=== PATIENT | female | born 1985 | race Caucasian/White ===

== ENCOUNTER 2020-05-30 16:06 | Emergency (ER) | payer SELFPAY ==
[2020-05-30] MEDS ORDERED: ACETAMINOPHEN 325 MG TABLET ONE (16:45)
[2020-05-30] MEDS ORDERED: NA CHLORIDE 0.9% 1,000 ML ONE (16:45)
[2020-05-30 16:48] LABS: Absolute Lymphocytes (CBC) 1.6 K/uL (0.7-4.9); Basophils % 0.7 % (0-1.3); Hematocrit 40.3 % (36.0-45.0); Lymphocytes % 21.7 % (15.3-44.8); MPV 8.4 fL (7.6-11.3); RBC Red Blood Cell Count 4.25 M/uL (3.86-4.86)
[2020-05-30 17:09] LABS: Protime INR 0.92
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
[2020-05-30 17:23] LABS: ALT/SGPT 22 U/L (12-78); AST/SGOT 21 U/L (15-37); Albumin 3.8 g/dL (3.4-5.0); Alkaline Phosphatase 61 U/L (45-117); BUN Blood Urea Nitrogen 9 mg/dL (7-18); Bicarbonate 24 mmol/L (21-32); Bilirubin Direct 0.2 mg/dL (0-0.2); Bilirubin Total 0.8 mg/dL (0.2-1.0); Glucose Level 97 mg/dL (74-106); Potassium 3.8 mmol/L (3.5-5.1); Protein, Total 6.9 g/dL (6.4-8.2); Sodium Level 140 mmol/L (136-145)
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
[2020-05-30] MEDS ORDERED: levETIRAcetam 500 MG TAB ONE (19:46)
[2020-05-30 20:04] LABS: Barbiturates NEGATIVE (NEGATIVE); Benzodiazepines POSITIVE (NEGATIVE); Cocaine POSITIVE (NEGATIVE); METHAMPHETAM NEGATIVE (NEGATIVE); Methadone NEGATIVE (NEGATIVE); Opiates NEGATIVE (NEGATIVE); Phencyclidine NEGATIVE (NEGATIVE); THC Cannibis NEGATIVE (NEGATIVE)
[2020-05-30 20:31] LABS: Urine Blood TRACE (NEG); Urine Glucose NEGATIVE (NEG); Urine Protein NEGATIVE (NEG); Urine pH 8.5 (5.0-7.0)
--- NOTE | 2020-05-31 07:35 | EKG ---
Test Date: 2020-05-30 Test Time: 17:26:27 Cue Worker: ALLYSSA MEASUREMENT RESULTS: Intervals: Rate: 75 OH: 138 QRSD: 88 QT: 384 QTc: 428 [place]: P: 65 OH: 138 QRS: -20 T: 40 INTERPRETIVE STATEMENTS: Normal sinus rhythm Possible Left atrial enlargement Borderline ECG No previous ECG available for comparison Electronically Signed On 05-31-20 07:34:18 LABOR GANG SUPERVISOR by Satnam Moore
[2020-06-01 15:14] VITALS: BP 113/68; O2SAT 100
[2020-06-01 15:21] VITALS: TEMP 98.6
== END 2020-05-30 19:54 | disposition home or self-care (01) ==
LOC: ER 16:06
DX: G40.909 Epilepsy, unspecified, not intractable, without status epilepticus (principal)
CPT/HCPCS: 36415; 70450; 72125; 80048; 80076; 80307; 80320; 80329; 81003; 81025; 85025; 85610; 85730; 93005; 99284; J7030

== ENCOUNTER 2020-08-05 17:42 | Emergency (ER) | payer SELFPAY ==
--- OUTSIDE RECORDS SUMMARY | 2020-08-05 17:45 | XMS REPORT | Continuity of Care Document ---
:[address] [facility] [place], [place] t Address [address] [place] [address] Care Team Providers Name Role Phone Unavailable Unavailable Unavailable Payers Payer Name Policy Type Policy Number Effective Date Expiration Date S ource Problems This patient has no known problems. Allergies, Adverse Reactions, Alerts Allergy Allergy Status Severity Reaction(s) Onset Inactive Treating Comm ents Source Name Type Date Date Clinician CODEINE DA Active U 2009-0 [facility] [place] [facility] No Known DA Active U 2009-0 [facility] Contrast 3-16 [place] [facility] No Known DA Active U 2009-0 [facility] Food 3-16 [place] [facility]: d [facility] No Known DA Active U 2009-0 [facility] Other 3-16 [place] [facility] Medications This patient has no known medications. Procedures This patient has no known procedures. Results Test Description Test Time Test Comments Results Result Comments Source BEDSIDE CREATININE 2019-03-12 13:37:00 Test Item Value Reference Range Interpretation Comme nts BEDSIDE CREATININE (test code = CREATBED) 0.6 mg/dL 0.52-1.04 [place] - PELVIC [id number] 02:02:00 FAX: Diana Wick [phone] [place]: St: REG Name: MAGGY DUNHAM [facility] Ida : 1985 Age/S: 33/F [address] Unit#: [id number] Loc: [place] [address] Phys: Diana Diego NP Acct: [id number] Dis Date: Status: REG ER PHONE #: [phone] Exam Date: 01/17/2019 0156 FAX #: [phone] Reason: LOWER ABD PAIN EXAMS: CPT CODE: [id number] US PELVIC COMPLETE 25794 Exam: Pelvic sonogram. Location: H 12 History: See reason on US PELVIC NON OB COMPLETE Technique: A real-time transabdominal pelvic sonogram was performed. A transvaginal exam was performed to better evaluate the pelvic anatomy. Grayscale, color flow and spectral analysis of the ovarian vessels was performed. Findings: The uterus is normal in size, shape and echotexture and measures 8.5 x 4.0 x 5.1 cm. The endometrial canal is empty. The stripe measures 1.1 cm. The ovaries are well visualized. The right ovary measures 2.8 x 2.4 x 2.3 cm with a 1.3 cm cyst noted. The left ovary measures 2.8 x 1.9 x 1.8 cm. There is good blood flow to both ovaries. No adnexal mass is seen. A small amount of free fluid is found the right adnexa. Impression: 1. Right ovarian cyst and surrounding fluid. 2. Otherwise unremarkable exam. at 0202 Reported and signed by: Gustavo New CC: Diana Diego NP Techn ologist: Stephani Baron RDOK RVT Trnscrd Date/Time/By: 01/17/2019 (0202) : By: IshaFC PAGE 1 Signed Report FAX: Diana Wick [phone] [place]: St: REG Name: MAGGY DUNHAM [facility] : 1985 Age/S: 33/F [address] Unit #: [id number] Loc: [place] [address] Phys: Diana Diego [employer] REPRESENTATIVE Acct: [id number] Dis Date: Status: RE G ER PHONE #: [phone] Exam Date: 01/17/2019155 FAX #: [phone] Reason: LOWER ABD PAIN EXAMS: CPT CODE: [id number] US PELVIC COMPLETE 92388 <Continued> Orig Print D/T: S: 01/17/2019 (0206) PAGE 2 Signed Report- US TRANSVAGINAL NON [id number] 02:02:00 FAX: Diana Wick [phone] [place]: St: REG Name: MAGGY DUNHAM [facility] : 1985 Age/S: 33/F [address] Unit#: [id number] Loc: [place] [address] Phys: Diana Diego [employer] REPRESENTATIVE Acct: [id number] Dis Date: Status: REG ER PHONE #: [phone] Exam Date: 01/17/2019155 FAX #: [phone] Reason: See reason on US PELVIC NON OB COMPLETE EXAMS: CPT CODE: [id number] [place] [address] Exam: Pelvic sonogram. Location: H 12 History: See reason on US PELVIC NON OB COMPLETE Technique: A real-time transabdominal pelvic sonogram was performed. A transvaginal exam was performed to better evaluate the pelvic anatomy. Grayscale, color flow and spectral analysis of the ovarian vessels was performed. Findings: The uterus is normal in size, shape and echotexture and measures 8.5 x 4.0 x 5.1 cm. The endometrial canal is empty. The stripe measures 1.1 cm. The ovaries are well visualized. The right ovary measures 2.8 x 2.4 x 2.3 cm with a 1.3 cm cyst noted. The left ovary measures 2.8 x 1.9 x 1.8 cm. There is good blood flow to both ovaries. No adnexal mass is seen. A small amount of free fluid is found the right adnexa. Impression: 1. Right ovarian cyst and surrounding fluid. 2. Otherwise unremarkable exam. at 0202 Reported and signed by: Gustavo New CC: Diana Diego NP Techn ologist: Stephani Baron [facility] RVT; S#:[id number] Trnscrd Date/Time/By: 01/17/2019 (0202) : By: Isha PAGE 1 Signed Report FAX: Diana Wick [phone] [place]: St: REG Name: MAGGY DUNHAM [facility] : 1985 Age/S: 33/F [address] Unit #: [id number] Loc: [place] [address] Phys: Diana Diego NP Acct: [id number] Dis Date: Status: RE Janette ER PHONE #: [phone] Exam Date: 01/17/2019 0156 FAX #: [phone] Reason: See reason on US PELVIC NON OB COMPLETE EXAMS: CPT CODE: [id number] [place] [address] <Continued> Orig Print D/T: S: 01/17/2019 (0205) PAGE 2 Signed Report- DUP AB/PEL/SC/[id number] 02:02:00 FAX: Diana Wick [phone] [place]: St: REG Name: MAGGY DUNHAM [facility] : 1985 Age/S: 33/F [address] Unit#: [id number] Loc: [place] [address] Phys: Diana Diego [employer] REPRESENTATIVE Acct: [id number] Dis Date: Status: [facility] ER PHONE #: [phone] Exam Date: 01/17/2019155 FAX #: [phone] Reason: See reason on US PELVIC NON OB COMPLETE EXAMS: CPT CODE: [id number] DUP AB/PEL/SC/LTD 39362 Exam: Pelvic sonogram. Location: H 12 History: See reason on US PELVIC NON OB COMPLETE Technique: A real-time transabdominal pelvic sonogram was performed. A transvaginal exam was performed to better evaluate the pelvic anatomy. Grayscale, color flow and spectral analysis of the ovarian vessels was performed. Findings: The uterus is normal in size, shape and echotexture and measures 8.5 x 4.0 x 5.1 cm. The endometrial canal is empty. The stripe measures 1.1 cm. The ovaries are well visualized. The right ovary measures 2.8 x 2.4 x 2.3 cm with a 1.3 cm cyst noted. The left ovary measures 2.8 x 1.9 x 1.8 cm. There is good blood flow to both ovaries. No adnexal mass is seen. A small amount of free fluid is found the right adnexa. Impression: 1. Right ovarian cyst and surrounding fluid. 2. Otherwise unremarkable exam. at 0202 Reported and signed by: Gustavo New CC: Diana Diego NP Techn ologist: Stephani Baron [facility] RVT Trnscrd Date/Time/By: 01/17/2019 (020) : By: Isha PAGE 1 Signed Report FAX: Diana Wick [phone] [place]: St: REG Name: CHARLAMAGGY HUGO [facility] : 1985 Age/S: 33/F [address] Unit #: [id number] Loc: [place] [address] Phys: Diana Diego NP Acct: [id number] Dis Date: Status: [facility] ER PHONE #: [phone] Exam Date: 01/17/2019 0156 FAX #: [phone] Reason: See reason on US PELVIC NON OB COMPLETE EXAMS: CPT CODE: [id number] DUP AB/PEL/SC/LTD 73214 <Continued> Orig Print D/T: S: 01/17/2019 (1202) PAGE 2 Signed Report BASIC METABOLIC [id number] 00:29:00 Test Item Value Reference Range Interpretation Comments SODIUM (test code = 139 mmol/L 137-145 N NA) POTASSIUM (test code 3.7 mmol/L 3.4-5.0 N = K) CHLORIDE (test code = 100 mmol/L 98-107 N CL) CARBON DIOXIDE (test 25 mmol/L 22-30 N code = CO2) GLUCOSE (test code = 118 mg/dL 74-106 H GLU) BLOOD UREA NITROGEN 9 mg/dL 7-17 N (test code = BUN) GLOMERULAR FILTRATION 121 >60 The es timated RATE (test code = glomerular filtration GFR) rate is compute d usingpatient ra ce, age (>18), sex, and serum creatinine. If anyof the needed data elements are mi ssing the Laboratory cannot compute an francisco mation of the glomerul ar filtration rate . CREATININE (test code 0.6 mg/dL 0.5-1.0 N = CREAT) CALCIUM (test code = 9.7 mg/dL 8.4-10.2 N CA) LIVER FUNCTION [id number] 00:29:00 Test Item Value Reference Range Interpretation Comments TOTAL PROTEIN (test 8.0 g/dL 6.3-8.2 N code = PROT) ALBUMIN (test code = 4.8 g/dL 3.5-5.0 N ALB) BILIRUBIN TOTAL (test 0.3 mg/dL 0.2-1.3 N code = BILT) BILIRUBIN CONJUGATED 0 mg/dL 0-0.3 N ~~~~~~~ ~~~~~~~~~~~~~~ (test code = BILCON) ~~~~~~~ ~~~~~~~~~~~~~~ ~~~~~~~~~~~~~~~ ~~~CON JUGATED BILIRUB IN IS THE REPLACEMENT ASSAY FOR DIRECTBILIRUBIN .~~~~~ ~~~~~~~~~~~~~~~ ~~~~~~ ~~~~~~~~~~~~~~~ ~~~~~~ ~~~~~~~~~~~~~ BILIRUBIN UNCONJUGATED 0.1 mg/dL 0-1.1 N (test code = BILUNC) SGOT/AST (test code = 17 U/L 15-46 N AST) SGPT/ALT (test code = 23 U/L 13-69 N ALT) ALKALINE PHOSPHATASE 54 U/L 38-126 N (test code = ALKP) [id number] 00:29:00 Test Item Value Reference Range Interpretation Comments LIPASE (test code = LIP) 44 U/L 23-300 N - CT ABD PELVIS [id number] 00:29:00 FAX: Diana Wick [phone] [place]: St: REG Name: MAGGY DUNHAM [facility] : 1985 Age/S: 33/F [address] Unit: [id number] Loc: [place] [address] Phys: Diana Diego [employer] REPRESENTATIVE Acct: [id number] Dis Date: Status: REG ER PHONE #: [phone] Exam Date: 01/17/2019 0018 FAX #: [phone] Reason: diffuse abd pain EXAMS: CPT CODE: [id number] CT ABD PELVIS W/CONT 36162 EXAM: - CT ABD PELVIS W/CONT LOCATION: C3 INDICATION: 33 years -old Female with diffuse abd pain TECHNIQUE: Contrast - IV contrast was given. No oral contrast was given Portal venous phase - abdomen and pelvis Delayed images through the abdomen obtained. Reconstructions - coronal and sagittal planes This exam was performed according to our departmental dose-optimization program, which includes automated exposure control, adjustment of the mA and/or kV according to patient size and/or use of iterative reconstruction technique COMPARISON: None FINDINGS: Statements: None. Thoracic: Included images of the lower chestdemonstrate no abnormalities. Hepatobiliary: The liver is normal without focal le ricky. The gallbladder is normal. No biliary dilation. Pancreas: Normal. Spleen: Normal. Adrenals: Normal. Genitourinary: In the right kidney 1.6 cm cortical cyst like lesion is noted. No hydronephrosis. Evaluation of the bladder islimited, but no obvious bladder abnormality is present. Bilateral fallopian tube occlusion devices noted. 1.6 cm cystlike lesion in the right ovary. 4 x 3.1 x 3.1 cm geographic fluid density identified in the right adnexa. Gastrointestinal: No bowel obstruction or perienteric inflammation. The appendix is normal. PAGE 1 Signed Report (CONTINUED) FAX: Diana Wick [phone] [place]: St: REG -- Name:MAGGY DUNHAM [facility] : 1985 Age/S: 33/F [address] Unit: [id number] Loc: [place] [address] Phys: Diana Diego NP Acct: [id number] Dis Date: Status: REG ER PHONE #: [phone] Exam Date: 01/17/20198 FAX #: [phone] Reason: diffuse abd pain EXAMS: CPT CODE: [id number] CT ABD PELVIS W/CONT 75176 <Continued> Vascular: No evidence of aneurysm or dissection. Lymphatics: No enlarged lymph nodesby CT size criteria. Bones/Soft Tissues: No acute osseous findings. No ventral hernias. Peritoneum/Other: No extraluminal air. No extraluminal fluid. IMPRESSION: 1.6 cm right ovarian cystlike lesion. 4 x 3.1 x 3.1 cm geographic fluid density in the right adnexa likely a peritoneal inclusion cyst.Normal appendix. at 0029 Reported and signed by: Tramaine Block MD CC: Diana Diego NP Technologist: Soo Ford; ANDREE WEINBERG Trnlianetrd Dt/Tm: 01/17/2019 (0029) [email or web address] Orig Print D/T: S: 01/17/2019 (0032 PAGE 2 Signed ReportHCG [id number] 00:23:00 Test Item Value Reference Range Interpretation Comments HCG POC (test code <5.0 IU/L 0-4.9 N = HCGPOC) Result s of 5.0-25.0 IU/L a re indeterminate a nd do not ruleout pregnan cy. Because HCG values doub le approximately e very48 hours in a norm al , sarah ents with low levels ofHC G should be resampled and r etested after 48 hours toconfirm . URINALYSIS [id number] 00:22:00 Test Item Value Reference Range Interpretation Comments UA COLOR (test code = COLU) Straw Yellow UA APPEARANCE (test code = Slightly-Cloudy Clear APPU) UA GLUCOSE DIPSTICK (test Negative Negative code = DGLUU) UA BILIRUBIN DIPSTICK (test Negative Negative code = BILU) UA KETONE DIPSTICK (test code Negative mg/dL Negative = KETU) UA SPECIFIC GRAVITY (test 1.004 <1.030 code = SGU) UA BLOOD DIPSTICK (test code 1+ Negative A = TONE) UA PH DIPSTICK (test code = 7.0 5.0-8.0 THELMA) UA PROTEIN DIPSTICK (test NEGATIVE mg/dL Negative code = PROU) UA UROBILINOGEN DIPSTICK Negative mg/dL Negative (test code = URO) UA NITRITE DIPSTICK (test Negative Negative code = TANYA) UA LEUKOCYTE ESTERASE TRACE Negative A DIPSTICK (test code = LEUU) UA WBC (test code = WBCU) 0-3 /HPF <4-5 UA RBC (test code = RBCU) 0-3 /HPF <4-5 UA BACTERIA (test code = Rare /HPF None-Rare BACU) UA SQUAMOUS CELLS (test code 0-5 (RARE) /HPF 0-5 (RARE) = SQU) CBC W/AUTO [id number] 00:19:00 Test Item Value Reference Range Interpretation Comments WHITE BLOOD CELL (test code = 14.1 x10 3/uL 5.0-12.0 H WBC) RED BLOOD CELL (test code = 4.90 x10 6/uL 4.20-5.40 N RBC) HEMOGLOBIN (test code = HGB) 14.8 g/dL 12.0-16.0 N HEMATOCRIT (test code = HCT) 43.7 % 36.0-46.0 N MEAN CELL VOLUME (test code = 89 fL 81-99 N MCV) MEAN CELL HGB (test code = 30.2 pg 27-31 N MCH) MEAN CELL HGB CONCENTRATION 33.9 g/dL 33-37 N (test code = MCHC) RED CELL DISTRIBUTION WIDTH 12.3 % 11.5-15.5 N (test code = RDW) PLATELET COUNT (test code = 290 x10 3/uL 130-400 N PLT) MEAN PLATELET VOLUME (test 10.4 fL 9.4-16.4 N code = MPV) NEUTROPHIL % (test code = NT%) 76.9 % 43-65 H IMMATURE GRANULOCYTE % (test 0.4 % 0.0-2.0 N code = IG%) LYMPHOCYTE % (test code = LY%) 15.7 % 20.5-45.5 L MONOCYTE % (test code = MO%) 6.7 % 5.5-11.7 N EOSINOPHIL % (test code = EO%) 0.1 % 0.9-2.9 L BASOPHIL % (test code = BA%) 0.2 % 0.2-1.0 N NUCLEATED RBC % (test code = 0.0 % 0-1.0 N NRBC%) NEUTROPHIL # (test code = NT#) 10.88 x10 3/uL 2.2-4.8 H IMMATURE GRANULOCYTE # (test 0.05 x10 3/uL 0-0.03 H code = IG#) LYMPHOCYTE # (test code = LY#) 2.22 x10 3/uL 1.3-2.9 N MONOCYTE # (test code = MO#) 0.94 x10 3/uL 0.3-0.8 H EOSINOPHIL # (test code = EO#) 0.01 x10 3/uL 0.0-0.2 N BASOPHIL # (test code = BA#) 0.03 x10 3/uL 0.0-0.1 N
[2020-08-05] MEDS ORDERED: NA CHLORIDE 0.9% 1,000 ML ONE (23:37)
[2020-08-05 23:39] LABS: Absolute Lymphocytes (CBC) 2.8 K/uL (0.7-4.9); Basophils % 0.6 % (0-1.3); Hematocrit 42.7 % (36.0-45.0); Lymphocytes % 42.4 % (15.3-44.8); MPV 9.7 fL (7.6-11.3); Protime INR 1.06
[2020-08-05 23:47] LABS: Barbiturates NEGATIVE (NEGATIVE); Benzodiazepines NEGATIVE (NEGATIVE); Cocaine POSITIVE (NEGATIVE); METHAMPHETAM NEGATIVE (NEGATIVE); Methadone NEGATIVE (NEGATIVE); Opiates NEGATIVE (NEGATIVE); Phencyclidine NEGATIVE (NEGATIVE); THC Cannibis POSITIVE (NEGATIVE)
[2020-08-05 23:51] LABS: ALT/SGPT 21 U/L (12-78); AST/SGOT 8 U/L (15-37); Albumin 4.1 g/dL (3.4-5.0); Alkaline Phosphatase 71 U/L (45-117); BUN Blood Urea Nitrogen 7 mg/dL (7-18); Bicarbonate 26 mmol/L (21-32); Bilirubin Direct 0.1 mg/dL (0-0.2); Bilirubin Total 0.4 mg/dL (0.2-1.0); Glucose Level 80 mg/dL (74-106); Magnesium 2.5 mg/dL (1.8-2.4); NT PRO-BNP 70 pg/mL (<125); Potassium 3.7 mmol/L (3.5-5.1); Protein, Total 7.2 g/dL (6.4-8.2); Sodium Level 142 mmol/L (136-145); Troponin (Emerg Dept Use Only) < 0.02 ng/mL (0.0-0.045)
[2020-08-06 00:02] LABS: C-Reactive Protein < 2.90 mg/L (<3.00)
[2020-08-06 00:13] LABS: Urine Blood TRACE (NEG); Urine Glucose NEGATIVE (NEG); Urine Protein TRACE (NEG); Urine Specific Gravity 1.025 (1.005-1.030); Urine pH 6.5 (5.0-7.0)
--- NOTE | 2020-08-06 00:15 | EDPHYS ---
Physician Documentation [facility] Name: Erika Wise Age: 35 yrs Sex: Female : 1985 Arrival Date: 08/05/2020 Time: 17:43 Bed 20 Private MD: Cristino Leong HPI: 08/05 22:33 This 35 yrs old Female presents to ER via Ambulatory with complaints of kimberlyn Numbness Of Arm, Numbness Of Face, Chest Pain. 22:33 The patient or guardian complains of decreased range of motion, pain. 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 - Social history:: Smoking status: Patient reports the use of cigarette tobacco products, "4 cigarettes a day", Patient uses alcohol, occasionally. Patient/guardian denies using street drugs, IV drugs. ROS: 22:34 Constitutional: Negative for fever, chills, and weight loss, Eyes: Negative for injury, kimberlyn pain, redness, and discharge, ENT: Negative for injury, pain, and discharge, Neck: Negative for injury, pain, and swelling, Cardiovascular: Negative for chest pain, palpitations, and edema, Respiratory: Negative for shortness of breath, cough, wheezing, and pleuritic chest pain, Abdomen/GI: Negative for abdominal pain, nausea, vomiting, diarrhea, and constipation, Back: Negative for injury and pain, : Negative for injury, bleeding, discharge, and swelling, Skin: Negative for injury, rash, and discoloration, Psych: Negative for depression, anxiety, suicide ideation, homicidal ideation, and hallucinations, Allergy/Immunology: Negative for hives, rash, and allergies, Endocrine: Negative for neck swelling, polydipsia, polyuria, polyphagia, and marked weight changes, Hematologic/Lymphatic: Negative for swollen nodes, abnormal bleeding, and unusual bruising. 22:34 MS/extremity: Positive for decreased range of motion, pain, of the right arm. Exam: 22:34 Constitutional: This is a well developed, well nourished patient who is awake, alert, kimberlyn and in no acute distress. Head/Face: Normocephalic, atraumatic. Eyes: Pupils equal round and reactive to light, extra-ocular motions intact. Lids and lashes normal. Conjunctiva and sclera are non-icteric and not injected. Cornea within normal limits. Periorbital areas with no swelling, redness, or edema. ENT: Nares patent. No nasal discharge, no septal abnormalities noted. Tympanic membranes are normal and external auditory canals are clear. Oropharynx with no redness, swelling, or masses, exudates, or evidence of obstruction, uvula midline. Mucous membranes moist. Neck: Trachea midline, no thyromegaly or masses palpated, and no cervical lymphadenopathy. Supple, full range of motion without nuchal rigidity, or vertebral point tenderness. No Meningismus. Chest/axilla: Normal chest wall appearance and motion. Nontender with no deformity. No lesions are appreciated. Cardiovascular: Regular rate and rhythm with a normal S1 and S2. No gallops, murmurs, or rubs. Normal PMI, no JVD. No pulse deficits. Respiratory: Lungs have equal breath sounds bilaterally, clear to auscultation and percussion. No rales, rhonchi or wheezes noted. No increased work of breathing, no retractions or nasal flaring. Abdomen/GI: Soft, non-tender, with normal bowel sounds. No distension or tympany. No guarding or rebound. No evidence of tenderness throughout. Back: No spinal tenderness. No costovertebral tenderness. Full range of motion. Skin: Warm, dry with normal turgor. Normal color with no rashes, no lesions, and no evidence of cellulitis. Psych: Awake, alert, with orientation to person, place and time. Behavior, mood, and affect are within normal limits. 22:34 Musculoskeletal/extremity: ROM: full passive range of motion, limited active range of motion, in the right arm, Circulation is intact in all extremities. Sensation intact. Compartment Syndrome exam of affected extremity: is normal. Joints: All joints appear normal with full range of motion. DVT Exam: No signs of deep vein thrombosis. no pain, no swelling, no tenderness, negative Homans' sign noted on exam, no appreciated bluish discoloration, no erythema, no increased warmth. 08/06 00:23 ECG was reviewed by the Attending Physician. [facility] Vital Signs: 08/05 17:56 BP 138 / 70; Pulse 70; Resp 18; Temp 98.7(TE); Pulse Ox 100% on R/A; Weight 55.34 kg aa5 (R); Height 5 ft. 4 in. (162.56 cm); Pain 7/10; 21:45 BP 105 / 55; Pulse 62; Resp 16; Pulse Ox 98% ; sf 23:25 BP 110 / 67; Pulse 60; Resp 16; Pulse Ox 100% ; sf 08/06 01:00 BP 119 / 65; Pulse 62; Resp 16; Pulse Ox 98% ; sf 08/05 17:56 Body Mass Index 20.94 (55.34 kg, 162.56 cm) aa5 NIH Stroke Scale Scores: 08/05 21:35 NIHSS Score: 4 sf MDM: 21:43 Patient medically screened. [facility] 22:36 Differential diagnosis: pyelonephritis, UTI. Data reviewed: vital signs, nurses notes, [facility] lab test result(s), EKG, radiologic studies, CT scan, plain films. Data interpreted: cardiac monitor: rate is 98 beats/min, rhythm is regular, Pulse oximetry: on room air is 98 %. Test interpretation: by ED physician or midlevel provider: ECG, plain radiologic studies. Counseling: I had a detailed discussion with the patient and/or guardian regarding: the historical points, exam findings, and any diagnostic results supporting the discharge/admit diagnosis, lab results, radiology results. 08/05 22:32 Order name: Basic Metabolic Panel [facility] 08/05 22:32 Order name: CBC with Diff [facility] 08/05 22:32 Order name: LFT's [facility] 08/05 22:32 Order name: Magnesium [facility] 08/05 22:32 Order name: NT PRO-BNP [facility] 08/05 22:32 Order name: PT-INR [facility] 08/05 22:32 Order name: Troponin (emerg Dept Use Only) [facility] 08/05 22:32 Order name: UDS [facility] 08/05 22:32 Order name: Sed Rate [facility] 08/05 22:32 Order name: CRP; Complete Time: 00:12 [facility] 08/05 22:33 Order name: Basic Metabolic Panel; Complete Time: 00:12 [facility] 08/05 22:33 Order name: CBC with Automated Diff; Complete Time: 00:12 [facility] 08/05 22:33 Order name: Liver (Hepatic) Function; Complete Time: 00:12 [facility] 08/05 22:33 Order name: Magnesium; Complete Time: 00:12 [facility] 08/05 22:32 Order name: XRAY Chest (1 view) [facility] 08/05 22:32 Order name: EKG; Complete Time: 22:34 [facility] 08/05 22:32 Order name: Cardiac monitoring; Complete Time: 22:41 [facility] 08/05 22:32 Order name: EKG - Nurse/Tech; Complete Time: 01:13 [facility] 08/05 22:32 Order name: IV Saline Lock; Complete Time: 23:15 [facility] 08/05 22:32 Order name: CT Head Brain wo Cont [facility] 08/05 22:33 Order name: NT PRO-BNP; Complete Time: 00:12 [facility] 08/05 22:33 Order name: Protime (+INR); Complete Time: 23:47 [facility] 08/05 22:33 Order name: Troponin (Emerg Dept Use Only); Complete Time: 00:12 [facility] 08/05 22:33 Order name: Urine Drug Screen; Complete Time: 00:12 [facility] 08/05 22:33 Order name: Sedimentation Rate, Westergren; Complete Time: 00:12 [facility] 08/05 22:52 Order name: Urine Culture [facility] 08/05 23:28 Order name: Urine --Ancillary (enter results); Complete Time: 00:23 [facility] 08/05 23:28 Order name: Urine Dipstick--Ancillary (enter results); Complete Time: 00:23 [facility] 08/05 22:32 Order name: Labs collected and sent; Complete Time: 23:16 [facility] 08/05 22:32 Order name: O2 Per Protocol; Complete Time: 22:41 [facility] 08/05 22:32 Order name: O2 Sat Monitoring; Complete Time: 22:41 [facility] 08/05 22:32 Order name: Urine Dipstick-Ancillary (obtain specimen); Complete Time: 01:27 [facility] 08/05 22:32 Order name: Urine Test (obtain specimen); Complete Time: 01:27 [facility] EC/26 00:23 Rate is 56 beats/min. Rhythm is regular. QRS [place] is Normal. [place] interval is normal. QRS kimberlyn interval is normal. QT interval is normal. No Q waves. T waves are Normal. No ST changes noted. Clinical impression: Sinus bradycardia and No evidence of ischemia. Interpreted by me. Reviewed by me. Administered Medications: 08/05 23:23 Drug: NS 0.9% 1000 ml Route: IV; Rate: 1 bolus; Site: left antecubital; 08/06 01:04 Follow up: IV Status: Completed infusion; IV Intake: 1000ml sf 01:15 Drug: Aspirin Chewable Tablet 324 mg Route: PO; sf 01:20 Follow up: Response: Medication administered at discharge. Disposition: 08/06/20 00:14 Discharged to Home. Impression: Weakness, Fibromyalgia, Cocaine abuse, Abuse of non-psychoactive substances. - Condition is Stable. - Discharge Instructions: Stimulant Use Disorder-Cocaine, Substance Use Disorder, Weakness, Nonspecific Chest Pain, Vlhl-nu-Yecw, Weakness, Qkev-rt-Pdyp, Aspirin and Your Heart. - Prescriptions for Vitamin 27- 0.8 mg Oral Tablet - take 1 tablet by ORAL route once daily; 30 tablet. - Medication Reconciliation Form, Thank You Letter, Antibiotic Education, Prescription Opioid Use form. - Follow up: Private Physician; When: 2 - 3 days; Reason: Recheck today's complaints, Continuance of care, Re-evaluation by your physician. Follow up: Raymond Neves; When: 2 - 3 days; Reason: Recheck today's complaints, Continuance of care, Re-evaluation by your physician. - Problem is new. - Symptoms have improved. NIH Stroke Scale - NIH Stroke Score Date: 08/05/2020 Time: 21:35 Total Score = 4 1a. Level of Consciousness (LOC) - 0(Alert) 1b. Level of Consciousness (LOC) (Year \\T\\ Age) - 0(Both) 1c. LOC Commands (Open \\T\\ Closes Eyes/Radio Maintainer) - 0(Both) 2. Best Gaze (Lateral Gaze Paresis) - 0(Normal) 3. Visual Field Loss - 1(Partial hemianopia) 4. Facial Palsy - 0(Normal) 5a. Left Arm: Motor (10-second hold) - 0(No drift) 5b. Right Arm: Motor (10-second hold) - 1(Drift) 6a. Left Leg: Motor (5-second hold - always test supine) - 0(No drift) 6b. Right Leg: Motor (5-second hold - always test supine) - 1(Drift) 7. Limb Ataxia (finger/nose \\T\\ heel/herrera - test with eyes open) - 0(Absent) 8. Sensory Loss (pinprick arms/legs/face) - 1(Mild to moderate loss) 9. Best Language: Aphasia (description/naming/reading) - 0(No aphasia) 10. Dysarthria (speech clarity - read or repeat words) - 0(Normal) 11. Extinction and Inattention (visual/tactile/auditory/spatial/personal) - 0(No abnormality) Initials: sf Signatures: Dispatcher [employer] EDDE Cristino Silva MD MD cha Wise, Tara RN RN [facility] Duane Tobar RN RN sf Corrections: (The following items were deleted from the chart) 08/05 21:52 17:58 Allergies: No Known Allergies; [facility] 21:52 17:58 Home Meds: None; [facility] 08/06 01:33 00:14 08/06/2020 00:14 Discharged to Home. Impression: Weakness; Fibromyalgia; sf Cocaine abuse; Abuse of non-psychoactive substances. Condition is Stable. Discharge Instructions: Weakness, Nonspecific Chest Pain, Ntkx-md-Qbal, Weakness, Ecuo-lx-Fulx, Aspirin and Your Heart. Prescriptions for Vitamin 27-0.8 mg Oral Tablet - take 1 tablet by ORAL route once daily; 30 tablet. and Forms are Medication Reconciliation Form, Thank You Letter, Antibiotic Education, Prescription Opioid Use. Follow up: Private Physician; When: 2 - 3 days; Reason: Recheck today's complaints, Continuance of care, Re-evaluation by your physician. Follow up: Raymond Neves; When: 2 - 3 days; Reason: Recheck today's complaints, Continuance of care, Re-evaluation by your physician. Problem is new. Symptoms have improved. kimberlyn
--- NOTE | 2020-08-06 00:15 | ER ---
Nurse's Notes [facility] Name: Erika Wise Age: 35 yrs Sex: Female : 1985 Arrival Date: 08/05/2020 Time: 17:43 Bed 20 Private MD: Diagnosis: Weakness;Fibromyalgia;Cocaine abuse;Abuse of non-psychoactive substances Presentation: 08/05 17:56 Chief complaint: Patient states: i am having chest pain and it started around 4 pm, my tw2 face is numb and i cant move my arm and that started when i woke up this morning around 10 am. Coronavirus screen: cough unrelated to allergies, difficulty breathing, shortness of breath, Client presents with at least one sign or symptom that may indicate coronavirus-19. Standard/surgical mask placed on the client. Provider contacted for isolation considerations. Ebola Screen: Patient denies travel to an Ebola-affected area in the 21 days before illness onset. Initial Sepsis Screen: Does the patient meet any 2 criteria? No. Patient's initial sepsis screen is negative. Does the patient have a suspected source of infection? No. Patient's initial sepsis screen is negative. Risk Assessment: Do you want to hurt yourself or someone else? Patient reports no desire to harm self or others. Onset of symptoms was August 05, 2020. 17:56 Method Of Arrival: Ambulatory tw2 17:56 Acuity: PIOTR 3 tw2 Triage Assessment: 17:58 General: Appears in no apparent distress. slender, well groomed, Behavior is calm, tw2 cooperative, appropriate for age. General: equal director of development and marketing. Pain: Complains of pain in chest. Cardiovascular: Reports chest pain, shortness of breath. MOVER: 21:53 LMP 07/29/2020 sf Historical: - Allergies: 21:51 No Known Allergies; sf - Home Meds: 21:51 Keppra XR 500 mg oral Tb24 2 tabs once daily [Active]; sf - PMHx: 17:58 Seizures; tw2 21:51 Fibromyalgia; Ulcerative colitis; sf - PSHx: 21:51 None; sf - Immunization history:: Adult Immunizations. - Social history:: Smoking status: Patient reports the use of cigarette tobacco products, "4 cigarettes a day", Patient uses alcohol, occasionally. Patient/guardian denies using street drugs, IV drugs. Screenin:35 Abuse screen: Denies threats or abuse. Denies injuries from another. Nutritional sf screening: No deficits noted. Tuberculosis screening: No symptoms or risk factors identified. Never had TB. Possible symptoms: None Risk factors: None. Fall Risk None identified. No fall in past 12 months (0 pts). Secondary diagnosis (15 points) seizures, IV access (20 points). Ambulatory Aid- None/Bed Rest/Nurse Assist (0 pts). Gait- Weak (10 pts.). Mental Status- Oriented to own ability (0 pts). Total Pantoja Fall Scale indicates Low Risk Score (25-44 pts). Fall prevention measures have been instituted. Side Rails Up X 2 Placed close to Nursing Station. Assessment: 21:35 Also complains of no other symptoms. Tenecteplase (TNKase) screening:. General: Appears sf in no apparent distress. comfortable, Behavior is calm, cooperative. Pain: Complains of pain in chest Pain radiates to left flank Pain currently is 5 out of 10 on a pain scale. Pain began gradually. Neuro: Level of Consciousness is awake, alert, Oriented to person, place, time, situation, Appropriate for age Wafer Batter Mixer are weak on right Weakness in right hand(s) arm(s) leg(s) Speech is normal, Facial symmetry appears normal, Pupils are PERRLA, Numbness in right arm and right leg Reports numbness weakness Denies blurred vision difficulty swallowing, headache. Cardiovascular: Reports chest pain, Patient's skin is warm and dry. Rhythm is sinus rhythm. Respiratory: Airway is patent Respiratory effort is even, unlabored, Respiratory pattern is regular, symmetrical. GI: No signs and/or symptoms were reported involving the gastrointestinal system. : Reports left flank pain starting a couple days ago. Has been taking Azo. 08/06 00:09 Reassessment: Patient appears in no apparent distress at this time. No changes from sf previously documented assessment. Patient and/or family updated on plan of care and expected duration. Pain level reassessed. Patient is alert, oriented x 3, equal unlabored respirations, skin warm/dry/pink. Vital Signs: 08/05 17:56 BP 138 / 70; Pulse 70; Resp 18; Temp 98.7(TE); Pulse Ox 100% on R/A; Weight 55.34 kg aa5 (R); Height 5 ft. 4 in. (162.56 cm); Pain 7/10; 21:45 BP 105 / 55; Pulse 62; Resp 16; Pulse Ox 98% ; sf 23:25 BP 110 / 67; Pulse 60; Resp 16; Pulse Ox 100% ; sf 08/06 01:00 BP 119 / 65; Pulse 62; Resp 16; Pulse Ox 98% ; sf 08/05 17:56 Body Mass Index 20.94 (55.34 kg, 162.56 cm) aa5 NIH Stroke Scale Scores: 08/05 21:35 NIHSS Score: 4 sf ED Course: 17:43 Patient arrived in ED. as 17:57 Triage completed. tw2 17:58 Arm band placed on. tw2 21:19 Duane Tobar, VICTORINO is Primary Nurse. sf 21:43 Cristino Silva MD is Attending Physician. kimberlyn 21:45 Patient has correct armband on for positive identification. Placed in gown. Bed in low sf position. Call light in reach. Side rails up X2. bus driver/monitor on. Pulse ox on. NIBP on. Door closed. Noise minimized. Lights dimmed. Warm blanket given. Verbal reassurance given. 21:45 Patient maintains SpO2 saturation greater than 95% on room air. sf 22:48 CT Head Brain wo Cont Sent. sf 22:54 CT Head Brain wo Cont In Process Unspecified. EDMS 23:10 Inserted saline lock: 20 gauge in left antecubital area, using aseptic technique. Blood ds4 collected. Missed attempt(s): 22 gauge in right wrist. Bleeding controlled, band aid applied, catheter tip intact. 23:18 XRAY Chest (1 view) Sent. sf 23:54 XRAY Chest (1 view) In Process Unspecified. EDMS 08/06 00:08 Sed Rate Sent. sf 00:08 UDS Sent. sf 00:08 Troponin (emerg Dept Use Only) Sent. sf 00:08 PT-INR Sent. sf 00:08 NT PRO-BNP Sent. sf 00:08 Magnesium Sent. sf 00:08 LFT's Sent. sf 00:08 CBC with Diff Sent. sf 00:08 Basic Metabolic Panel Sent. sf 00:13 Raymond Neves MD is Referral Physician. kimberlyn 01:20 No provider procedures requiring assistance completed. IV discontinued, intact, sf bleeding controlled, No redness/swelling at site. Pressure dressing applied. Administered Medications: 08/05 23:23 Drug: NS 0.9% 1000 ml Route: IV; Rate: 1 bolus; Site: left antecubital; 08/06 01:04 Follow up: IV Status: Completed infusion; IV Intake: 1000ml 01:15 Drug: Aspirin Chewable Tablet 324 mg Route: PO; sf 01:20 Follow up: Response: Medication administered at discharge. sf Intake: 01:04 IV: 1000ml; Total: 1000ml. Outcome: 00:14 Discharge ordered by . kimberlyn 01:20 Discharged to home ambulatory. sf 01:20 Condition: good 01:20 Discharge instructions given to patient, Instructed on discharge instructions, follow up and referral plans. medication usage, safety practices, Demonstrated understanding of instructions, follow-up care, medications, Prescriptions given X 1. 01:33 Patient left the ED. NIH Stroke Scale - NIH Stroke Score Date: 08/05/2020 Time: 21:35 Total Score = 4 1a. Level of Consciousness (LOC) - 0(Alert) 1b. Level of Consciousness (LOC) (Year \\T\\ Age) - 0(Both) 1c. LOC Commands (Open \\T\\ Closes Eyes/Personal Vehicle Advisor) - 0(Both) 2. Best Gaze (Lateral Gaze Paresis) - 0(Normal) 3. Visual Field Loss - 1(Partial hemianopia) 4. Facial Palsy - 0(Normal) 5a. Left Arm: Motor (10-second hold) - 0(No drift) 5b. Right Arm: Motor (10-second hold) - 1(Drift) 6a. Left Leg: Motor (5-second hold - always test supine) - 0(No drift) 6b. Right Leg: Motor (5-second hold - always test supine) - 1(Drift) 7. Limb Ataxia (finger/nose \\T\\ heel/herrera - test with eyes open) - 0(Absent) 8. Sensory Loss (pinprick arms/legs/face) - 1(Mild to moderate loss) 9. Best Language: Aphasia (description/naming/reading) - 0(No aphasia) 10. Dysarthria (speech clarity - read or repeat words) - 0(Normal) 11. Extinction and Inattention (visual/tactile/auditory/spatial/personal) - 0(No abnormality) Initials: sf Signatures: Dispatcher [employer] EDMS Ricardo, Cristino, MD MD kimberlyn Ravinder, Jaci as Jerez, Jaleesa, RN RN aa5 George Bolaños ds4 Jessica Main RN RN tw2 Duane Tobar RN RN sf Corrections: (The following items were deleted from the chart) 08/05 19:46 17:56 BP 138 / 70; Pulse 18bpm; Resp 70bpm; Pulse Ox 100% RA; Temp 98.7F aa5 Temporal; 55.34 kg Reported; Height 5 ft. 4 in.; BMI: 20.9; Pain 7/10; 21:52 17:58 Allergies: No Known Allergies; 21:52 17:58 Home Meds: None;
[2020-08-06] MEDS ORDERED: ASPIRIN 81 MG CHEWABLE TABLET ONE (01:30)
[2020-08-06 06:46] VITALS: TEMP 98.7
[2020-08-06 06:49] VITALS: BP 119/65; O2SAT 98
--- NOTE | 2020-08-06 07:53 | RAD REPORT ---
EXAM DESCRIPTION: RAD - Chest Single View - 08/05/2020 11:54 pm CLINICAL HISTORY: COUGH COMPARISON: None TECHNIQUE: AP portable chest image was obtained 08/05/2020 11:54 pm . FINDINGS: No focal mass or consolidation. Interstitial pattern is mildly prominent but suspected to be baseline. Heart and vasculature are normal. No measurable pleural effusion and no pneumothorax. No acute bony abnormality seen. No acute aortic findings suspected. IMPRESSION: No acute cardiopulmonary process.
--- NOTE | 2020-08-06 10:51 | RAD REPORT ---
EXAM DESCRIPTION: CT - Head Brain Wo Cont - 08/06/2020 7:08 am CLINICAL HISTORY: Chest pain, facial numbness, TIA TECHNIQUE: Contiguous axial CT images obtained through the brain without IV contrast. Coronal and sa gittal reformatted images were provided. This exam was performed according to our departmental dose-optimization program, which includes autom ated exposure control, adjustment of the mA and/or kV according to patient size and/or use of iterati ve reconstruction technique. COMPARISON: 05/30/2020 FINDINGS: Brain: No significant white matter changes. No focal mass effect. Rhoades-white matter differ entiation is within normal limits. No hemorrhage. Ventricles: No ventriculomegaly or midline shift. Extra-axial spaces: No extra-axial collection or hemorrhage. Paranasal sinuses and mastoid air cells: Well-aerated Vessels: Unremarkable Bones: Unremarkable Soft tissues: Unremarkable IMPRESSION: No acute hemorrhage, focal mass or large territory infarction. Electronically signed by: Rosi Clayton MD 08/05/2020 11:05 PM DIRECT OF REAL ESTATE Due to temporary technical issues with the PACS/Fluency reporting system, reports are being signed by the in house radiologist without review as a courtesy to ensure prompt reporting. The interpreting r adiologist is fully responsible for the content of the report.
--- NOTE | 2020-08-06 14:09 | EKG ---
Test Date: 2020-08-06 Test Time: 00:16:16 Attending Urologist: RAYMOND MEASUREMENT RESULTS: Intervals: Rate: 56 TN: 140 QRSD: 84 QT: 450 QTc: 434 [place]: P: 80 TN: 140 QRS: -59 T: 71 INTERPRETIVE STATEMENTS: Sinus bradycardia Left axis deviation Abnormal ECG Compared to ECG 05/30/2020 17:26:27 Left-axis deviation now present Sinus rhythm no longer present Electronically Signed On 08-06-20 14:08:52 PREVENTIVE MEDICINE PHYSICIAN by Satnam Moore
== END 2020-08-06 01:33 | disposition home or self-care (01) ==
LOC: ER 17:42
DX: M79.7 Fibromyalgia (principal); F14.10 Cocaine abuse, uncomplicated; F55.8 Abuse of other non-psychoactive substances; F17.210 Nicotine dependence, cigarettes, uncomplicated
CPT/HCPCS: 36415; 70450; 71045; 80048; 80076; 80307; 81003; 81025; 83735; 83880; 84484; 85025; 85610; 85652; 86140; 87086; 87088; 93005; 96360; 96361; 99285; J7030

== ENCOUNTER 2022-04-28 07:00 | Emergency (ER) | payer SELFPAY ==
--- OUTSIDE RECORDS SUMMARY | 2022-04-28 07:02 | XMS REPORT | Continuity of Care Document ---
:1985 Author Organization [facility] t Address [address] [place] [address] Care Team Providers Name Role Phone PCP, PATIENT DOES NOT HAVE A Primary Care Physician Unavaila MYA Danielle Attending Clinician Unavailable Mya Heaton DO Attending Clinician MYA HEATON Admitting Clinician Unavailable Payers Payer Name Policy Type Policy [...] [facility]16 [place] [facility] No Known DA Active U 2009-0 [facility] Food 3-16 [place] [facility]: d [facility] No Known DA Active U 2009-0 [facility] Other 3-16 [place] [facility] 00:[facility]: d [facility] NO KNOWN Drug Active Univers ALLERGIE Class ity of [facility] Social History Social Habit Start Date Stop Date Quantity Comments Source Exposure to 2022-03-25 2022-04-04 Not sure [facility] SARS-CoV-2 (event) 00:00:00 15:41:00 Medica l Branch Sex Assigned At [birth year] [facility] y of [place] 00:00:00 00:00:00 Medical Branch Smoking Status Start Date Stop Date Source Tobacco smoking consumption [facility] Medical unknown Branch Medications Ordered Filled Start Stop Current Ordering Indication Dosage Frequency Signature Comments Components Source Medication Medication Date Date Medication? Clinician (SIG) Name Name methylpredn 2021-06 Yes 125mg 125 mg, Un king isolone sod 0-25 Intravenou it y of succ 23:00: s, Q6H, [place] (SOLU-MEDRO 00 First dose Me dical L) on [facility] Branch injection 04/04/22 125 mg at 1800, Until Discontinu ed, Routine iopamidol 2021-06- No [id number] 65mL 65 mL, U nivers (ISOVUE 0-25 10-25 Intravenou ity o f 370-500 mL) 22:15: 21:18 s, ONCE, 1 [place] injection 00 :00 dose, On Medica l 65 mL [facility] 04/04/22 at 1715, Routine ondansetron 2021-06- No 4mg 4 mg, Slow Univers (ZOFRAN 0-25 10-25 IV Push, ity of (PF)) 21:15: 20:34 ONCE, 1 [place] injection 4 00 :00 dose, On Medi caden mg [facility] 04/04/22 at 1615, Routine NaCl 0.9% 2021-06- No 1000mL at 999 Uni vers (NS) bolus 0-25 10-25 mL/hr, ity of infusion 20:15: 21:31 1,000 mL, Farhan as 1,000 mL 00 :00 IV Medical Infusion, Branch ONCE, 1 dose, On [facility] 04/04/22 at 1515, STAT morpHINE (4 2021-06 Yes 4mg 4 mg, Slow Univers mg/mL) 0-25 IV Push, ity of injection 4 20:11: Q4HPRN, Farhan as mg 27 Starting Medical on [facility] Branch 04/04/22 at 1511, Until Discontinu ed, Routine, Pain (scale 7-10) methylPREDN 2021-06 Yes [id number] Take by Univers ISolone 0-25 mouth ity of (MEDROL, 00:00: SEE-INSTRU Farhan as PRITESH,) 4 mg 00 CTIONS. Medica l tablets follow Branch package directions Vital Signs Vital Name Observation Time Observation Value Comments Source Systolic blood 2022-04-04 22:14:03 106 mm[Hg] Taisha sity [facility] Diastolic blood 2022-04-04 22:14:03 57 mm[Hg] [facility] rate 2022-04-04 22:14:03 73 /min [facility] Respiratory rate 2022-04-04 22:14:03 18 /min [facility] Oxygen saturation in 2022-04-04 22:14:03 98 /min [facility] Arterial blood by [facility] Pulse oximetry [place] Body temperature 2022-04-04 20:09:00 37.06 Sania [facility] Body height 2022-04-04 20:09:00 162.6 cm [facility] Body weight 2022-04-04 20:09:00 58.968 kg [facility] BMI 2022-04-04 20:09:00 22.31 kg/m2 [facility] Procedures Procedure Date / Time Performed Performing Clinician Sour e CT ABDOMEN PELVIS W 2022-04-04 21:23:12 Mya Heaton [facility] CONTRAST [facility] LIPASE 2022-04-04 20:32:00 Singer [facility] COMP. METABOLIC PANEL 2022-04-04 20:32:00 [facility] ([id number]) [facility] CBC WITH DIFF 2022-04-04 20:32:00 Singer [facility] URINALYSIS 2022-04-04 20:32:00 Heaton, [facility] NOTICE OF PRIVACY 2022-04-04 19:58:09 Doctor Unassigned, [facility] Name Medical Branch CONSENT/REFUSAL FOR 2022-04-04 19:57:42 Doctor Unassigned, [facility] DI[facility]IS AND Name Medical Branch TREATMENT Encounters Start End Encounter Admission Attending Care Care Encounter Source Date/Time Date/Time Type Type Clinicians Facility Department ID 2022-04-04 2022-04-04 Emergency X SINGER [facility] ERT [id number] Univers 15:10:00 17:50:00 MYA onofre of [facility] 2022-04-04 2022-04-04 Emergency Singer [facility] [id number] Univers 15:10:00 17:50:00 Mya GRIFFITHS 350.1.13.10 i ty [facility] 4.2.7.2.686 [facility] [id number] [address] Results Test Description Test Time Test Comments Results Result Comments Source BEDSIDE CREATININE 2019-03-12 13:37:00 Test Item Value Reference Range Interpretation Comme nts BEDSIDE CREATININE (test code = CREATBED) 0.6 mg/dL 0.52-1.04 N - US PELVIC [id number] 02:02:00 FAX: Diana Wick [phone] [place]: St: REG Name: MAGGY DUNHAM [facility] : 1985 Age/S: 33/F [address] Unit #: [id number] Loc: [place] [address] Phys: Diana Diego NPAcct: [id number] Dis Date: Status: REG ER PHONE #: [phone] Exam Date: 01/17/2019 0156 FAX #: [phone] Reason: LOWER ABD PAIN EXAMS: CPT CODE: [id number] US PELVIC COMPLETE 05054 Exam: Pelvicsonogram. Location: H 12 History: See reason on [...] at 0202 Reported and signed by: Gustavo Sepulveda CC: Diana Diego NP Technologist: Stephani Baron RDMS RVT Trnscrd Date/Time/By: 01/17/2019 (0202) : By: Isha PAGE 1 Signed Report FAX: Diana Wick [phone] [place]: St: REG -- Name: MAGGY DUNHAM [facility] : 1985 Age/S: 33/F [address] Unit #: [id number] Loc: [place] [address] Phys: Diana Diego NP Acct: [id number] Dis Date: Status:REG ER PHONE #: [phone] Exam Date: 01/17/2019 0156 FAX #: [phone] Reason: LOWER ABD PAIN EXAMS: CPT CODE: [id number] US PELVIC COMPLETE 85616 (Continued) Orig Print D/T: S: 01/17/2019 (7295) PAGE 2 Signed Report- US TRANSVAGINAL NON [id number] 02:02:00 FAX: Diana Wick [phone] [place]: St: REG Name: MAGGY DUNHAM [facility] : 1985 Age/S: 33/F [address] Unit #: [id number] Loc: [place] [address] Phys: Diana Diego NPAcct: [id number] Dis Date: Status: REG ER PHONE #: [phone] Exam Date: 01/17/2019 0156 FAX #: Reason: See reason on US PELVIC NON OB COMPLETE EXAMS: CPT CODE: [id number] [place] [address] Exam: Pelvic sonogram. 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 Technologist: Stephani Baron [facility] RVT; S#:[id number] Trnscrd Date/Time/By: 01/17/2019 (020) : By: Micheal PAGE 1Signed Report FAX: Diana Wick [phone] [place]: St: REG Name: MAGGY DUNHAM [facility] : 1985 Age/S: 33/F [address] Unit #: [id number] Loc: [place] [address] Phys: Diana Diego NP Acct: [id number] Dis Date: Status: REG ER PHONE #: [phone] Exam Date: 01/17/2019 0156 FAX #: [phone] Reason: See reason on US PELVIC NON OB COMPLETE EXAMS: CPT CODE: [id number] [address] (Continued) Orig Print D/T: S: 01/17/2019 (0205) PAGE 2 Signed Report- ROMARIO BELTRAN/LOGAN/FANNY/[id number] 02:02:00 FAX: Diana Wick [phone] [place]: St: REG Name: MAGGY DUNHAM [facility] : 1985 Age/S:33/F [address] Unit #: [id number] Loc: [place] [address] Phys: Diana Diego NP Acct: [id number] Dis Date: Status: REG ER PHONE #: [phone] Exam Date: 01/17/2019 0156 FAX #: [phone] Reason: See reason on US PELVIC NON OB COMPLETE EXAMS: CPT CODE: [id number] DUP AB/PEL/SC/LTD 22278 Exam: Pelvic sonogram. Location: H 12 History: See reason on US PELVIC NON OB COMPLETE Technique: A real-time transabdominal pelvic sonogram was performed. A transvaginal exam was performed to better evaluate the pelvic anatomy. Grayscale, color flow and spectral analysis of the ovarian vessels was performed. Findings: The uterus is normal in size, shape and echotexture and measures 8.5x 4.0 x 5.1 cm. The endometrial canal [...] Impression: 1. Right ovarian cyst and surrounding fluid.2. Otherwise unremarkable exam. at 0202 Reported and signed by: Gustavo New CC: Diana Diego NP Technologist: Stephani Baron [facility] RVT Trnscrd Date/Time/By: 01/17/2019 (0202) : By: Isha PAGE 1 Signed Report FAX: Diana Wick [phone] [place]: St: REG Name: CHARLAMAGGY HUGO [facility] : 1985 Age/S: 33/F [address] Unit #: [id number] Loc: [place] [address] Phys: BrandieDianaalley Shelton SOFT WORK WRAPPER EXAMINER Acct: [id number] Dis Date: Status: REG ER PHONE #: [phone] Exam Date: 01/17/2019 0156 FAX #: [phone] Reason: See reason on US PELVIC NON OB COMPLETE EXAMS: CPT CODE: [id number] DUP AB/PEL/SC/LTD 68807 (Continued) Orig Print D/T: S: 01/17/2019 (0205) PAGE 2 Signed ReportBASIC METABOLIC [id number] 00:29:00 Test Item Value Reference Range Interpretation [...] 9.7 mg/dL 8.4-10.2 N CA) LIVER FUNCTION [id number] 00:29:00 Test Item Value Reference Range Interpretation [...] U/L 38-126 N (test code = ALKP) [id number] 00:29:00 Test Item Value Reference Range Interpretation Comments LIPASE (test code = LIP) 44 U/L 23-300 N - CT ABD PELVIS [id number] 00:29:00 FAX: Diana Wick [phone] [place]: St: REG Name: MAGGY DUNHAM [facility] : 1985 Age/S: 33/F [address] Unit: [id number] Loc: [place] [address] Phys: Diana Diego SOFT WORK WRAPPER EXAMINER Acct: [id number] Dis Date: Status: REG ER PHONE #: [phone] Exam Date: 01/17/201917 FAX #: [phone] Reason: diffuse abd pain EXAMS: CPT CODE: [id number] CT ABD PELVIS W/CONT 21375 EXAM: - CT ABD PELVIS W/CONT LOCATION: [...] Statements: None. Thoracic: Included images of the lowerchest demonstrate no abnormalities. Hepatobiliary: The liver is normal without focal lesion. The gallbladder is normal. No biliary dilation. Pancreas: Normal. Spleen: Normal. Adrenals: Normal. Genitourinary: In the right kidney 1.6 cm cortical cyst like lesion is noted. No hydronephrosis. Evaluation of the bladder is limited, but no obvious bladder abnormality is present. Bilateral fallopian tube occlusion devices noted. 1.6 cm cystlike lesion in the right ovary. 4 x 3.1 x 3.1 cm geographic fluid density identified in the right adnexa. Gastrointestinal: No bowel obstruction or perienteric inflammation. The appendix is normal. PAGE 1 Signed Report (CONTINUED) FAX: Diana Wick [phone] [place]: St: REG -- Name: CHARLAMAGGY HUGO [facility] : 1985 Age/S: 33/F [address] Unit: [id number] Loc: [place] [address] Phys: Diana Deigo SOFT WORK WRAPPER EXAMINER Acct: [id number] Dis Date: Status: REG ER PHONE #: [phone] Exam Date: 01/17/2019 0018 FAX #: [phone] Reason: diffuse abd pain EXAMS: CPT CODE: [id number] CT ABD PELVIS W/CONT 16013 (Continued) Vascular: No evidence of aneurysm or dissection. Lymphatics: No enlarged lymph nodes by CT size criteria. Bones/Soft Tissues: No acute osseous findings. No ventral hernias. Peritoneum/Other: No extraluminal air. No extraluminal fluid. IMPRESSION: 1.6 cm right ovarian cystlike lesion. 4 x 3.1 x 3.1 cm geographic fluid density in the right adnexa likely a peritoneal inclusion cyst. Normal appendix. at 0029 Reported and signed by: Umair FERNANDEZ, Tramaine CC: Diana Encinas Technologist: Soo Ford; ANDREE WEINBERG Dt/Tm: 01/17/2019 (0029) [email or web address] Orig Print D/T : S: 01/17/2019 (0032 PAGE 2 Signed ReportHCG [id number] 00:23:00 Test Item Value Reference Range Interpretation [...] etested after 48 hours toconfirm . URINALYSIS [id number] 00:22:00 Test Item Value Reference Range Interpretation [...] /HPF 0-5 (RARE) = SQU) CBC W/AUTO [id number] 00:19:00 Test Item Value Reference Range Interpretation [...]
[2022-04-28] MEDS ORDERED: LEVETIRACETAM 500 MG/5 ML VIAL IV ONE (07:33)
[2022-04-28] MEDS ORDERED: LORazepam 2 MG/ML VIAL ONE (07:35)
[2022-04-28] MEDS ORDERED: ONDANSETRON 4 MG/2 ML VIAL ONE (07:37)
[2022-04-28] MEDS ORDERED: NA CHLORIDE 0.9% 100 ML IV ONE (07:37)
[2022-04-28] MEDS ORDERED: NA CHLORIDE 0.9% 1,000 ML ONE (07:37)
[2022-04-28] MEDS ORDERED: KETOROLAC 30 MG/ML INJ ONE (07:37)
[2022-04-28] MEDS ORDERED: levETIRAcetam 500 MG TAB ONE (07:37)
--- NOTE | 2022-04-28 07:38 | EDPHYS ---
Physician Documentation [facility] Name: Erika Wise Age: 36 yrs Sex: Female : 1985 Arrival Date: 04/28/2022 Time: 07:03 Bed 18 Private MD: Cristino Leong HPI: 04/28 07:32 This 36 yrs old Female presents to ER via Unassigned with complaints of kimberlyn seizure. 07:32 The patient presents after having a single isolated seizure, that lasted 2 minute(s). kimberlyn Character of seizure(s): Loss of consciousness: the patient experienced loss of consciousness, Motor activity: generalized, Incontinence: none, Apnea: the patient did not experience apnea, Circulation: the patient did not experience evidence of pulse disturbance. Seizure onset: this morning. Context: the seizure(s) was witnessed, by family, occurred at a hospital. Seizure Hx: Original onset: longstanding. Associated injury: The patient did not suffer any apparent associated injury. The patient has experienced similar episodes in the past, multiple times. 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 - Family history:: not pertinent. - Social history:: Patient uses Smoking status: Patient reports the use of cigarette tobacco products. ROS: 07:32 Constitutional: Negative for fever, chills, and weight loss, Eyes: Negative for injury, kimberlyn pain, redness, and discharge, ENT: Negative for injury, pain, and discharge, Neck: Negative for injury, pain, and swelling, Cardiovascular: Negative for chest pain, palpitations, and edema, Respiratory: Negative for shortness of breath, cough, wheezing, and pleuritic chest pain, Abdomen/GI: Negative for abdominal pain, nausea, vomiting, diarrhea, and constipation, Back: Negative for injury and pain, : Negative for injury, bleeding, discharge, and swelling, MS/Extremity: Negative for injury and deformity, Skin: Negative for injury, rash, and discoloration, Psych: Negative for depression, anxiety, suicide ideation, homicidal ideation, and hallucinations, Allergy/Immunology: Negative for hives, rash, and allergies, Endocrine: Negative for neck swelling, polydipsia, polyuria, polyphagia, and marked weight changes, Hematologic/Lymphatic: Negative for swollen nodes, abnormal bleeding, and unusual bruising. 07:32 Neuro: Positive for headache, seizure activity. Exam: 07:32 Constitutional: This is a well developed, well nourished patient who is awake, alert, kimberlyn and in no acute distress. Head/Face: Normocephalic, atraumatic. Eyes: Pupils equal round and reactive to light, extra-ocular motions intact. Lids and lashes normal. Conjunctiva and sclera are non-icteric and not injected. Cornea within normal limits. Periorbital areas with no swelling, redness, or edema. ENT: Nares patent. No nasal discharge, no septal abnormalities noted. Tympanic membranes are normal and external auditory canals are clear. Oropharynx with no redness, swelling, or masses, exudates, or evidence of obstruction, uvula midline. Mucous membranes moist. Neck: Trachea midline, no thyromegaly or masses palpated, and no cervical lymphadenopathy. Supple, full range of motion without nuchal rigidity, or vertebral point tenderness. No Meningismus. Chest/axilla: Normal chest wall appearance and motion. Nontender with no deformity. No lesions are appreciated. Cardiovascular: Regular rate and rhythm with a normal S1 and S2. No gallops, murmurs, or rubs. Normal PMI, no JVD. No pulse deficits. Respiratory: Lungs have equal breath sounds bilaterally, clear to auscultation and percussion. No rales, rhonchi or wheezes noted. No increased work of breathing, no retractions or nasal flaring. Abdomen/GI: Soft, non-tender, with normal bowel sounds. No distension or tympany. No guarding or rebound. No evidence of tenderness throughout. Back: No spinal tenderness. No costovertebral tenderness. Full range of motion. Skin: Warm, dry with normal turgor. Normal color with no rashes, no lesions, and no evidence of cellulitis. MS/ Extremity: Pulses equal, no cyanosis. Neurovascular intact. Full, normal range of motion. Neuro: Awake and alert, GCS 15, oriented to person, place, time, and situation. Cranial nerves II-XII grossly intact. Motor strength 5/5 in all extremities. Sensory grossly intact. Cerebellar exam normal. Normal gait. Psych: Awake, alert, with orientation to person, place and time. Behavior, mood, and affect are within normal limits. 07:32 Neuro: Orientation: is normal, appropriate for stated age, no acute changes, Mentation: is normal, appropriate for stated age, no acute changes, Memory: is normal, appropriate for stated age, no acute changes, Cranial nerves: grossly normal, is grossly normal based on the patient's age, Cerebellar function: is grossly normal, is grossly normal based on the patient's age, no acute changes, Motor: is normal, is grossly normal based on the patient's age, no acute changes, moves all fours, strength is 5/5 in all extremities, Sensation: is normal, no obvious gross deficits, appropriate no acute changes, Gait: not tested. seizure activity, grand mal type is displayed. Vital Signs: 07:57 BP 107 / 71; ap3 08:05 Pulse 88; Pulse Ox 100% on R/A; ap3 MDM: 07:05 Patient medically screened. [facility] 07:35 Differential diagnosis: seizure. Data reviewed: vital signs, nurses notes, lab test [facility] result(s). Data interpreted: quality assurance monitor body: rate is 85 beats/min, rhythm is regular, Pulse oximetry: on room air is 96 %. Test interpretation: by ED physician or midlevel provider: ECG, plain radiologic studies. Counseling: I had a detailed discussion with the patient and/or guardian regarding: the historical points, exam findings, and any diagnostic results supporting the discharge/admit diagnosis, lab results, radiology results. 04/28 07:06 Order name: CBC with Diff; Complete Time: 08:36 [facility] 04/28 07:06 Order name: Comprehensive Metabolic Panel; Complete Time: 08:36 [facility] 04/28 07:06 Order name: Seizure Precautions; Complete Time: 07:57 [facility] Administered Medications: 07:56 Drug: Keppra (levETIRAcetam) 500 mg Route: PO; ap3 08:46 Follow up: Response: No adverse reaction ap3 07:56 Drug: NS 0.9% 1000 ml Route: IV; Rate: 1 bolus; Site: right antecubital; ap3 08:46 Follow up: IV Status: Completed infusion ap3 07:56 Drug: Zofran (Ondansetron) 4 mg Route: IVP; Site: right antecubital; ap3 08:46 Follow up: Response: No adverse reaction; Nausea is decreased ap3 07:56 Drug: TORadol (ketorolac) 30 mg Route: IVP; Site: right antecubital; ap3 08:46 Follow up: Response: No adverse reaction; Pain is decreased ap3 07:57 Drug: Ativan (LORazepam) 1 mg Route: IVP; Site: right antecubital; ap3 08:46 Follow up: Response: No adverse reaction ap3 07:57 Drug: Keppra (levETIRAcetam) 1000 mg Route: IV; Rate: per protocol; Site: right ap3 antecubital; 08:46 Follow up: IV Status: Infusion continued ap3 Disposition Summary: 04/28/22 07:37 Discharge Ordered Location: Home kimberlyn Problem: new kimberlyn Symptoms: have improved kimberlyn Condition: Stable kimberlyn Diagnosis - Epileptic seizures related to external causes, not intractable kimberlyn Followup: kimberlyn - With: Private Physician - When: 2 - 3 days - Reason: Recheck today's complaints, Continuance of care, Re-evaluation by your physician Followup: kimberlyn - With: Raymond Neves MD - When: 2 - 3 days - Reason: Recheck today's complaints, Continuance of care, Re-evaluation by your physician Discharge Instructions: - Discharge Summary Sheet kimberlyn - Seizure, Adult kimberlyn - Seizure, Adult, [id number] kimberlyn Forms: - Medication Reconciliation Form kimberlyn - Thank You Letter kimberlyn - Antibiotic Education kimberlyn - Prescription Opioid Use kimberlyn Prescriptions: - Keppra 750 mg Oral Tablet - take 1 tablet by ORAL route every 12 hours; 20 tablet; Refills: 0, Product kimberlyn Selection Permitted Signatures: Dispatcher [employer] Cristino Espino MD MD cha Prokisch, Amanda, RN RN ap3
--- NOTE | 2022-04-28 07:38 | ER ---
Nurse's Notes [facility] Name: Erika Wise Age: 36 yrs Sex: Female : 1985 Arrival Date: 04/28/2022 Time: 07:03 Bed 18 [facility] MD: Diagnosis: Epileptic seizures related to external causes, not intractable Presentation: 04/28 07:00 Chief complaint: Patient states: during shift report, off going nurse reported that the ap3 patient was observed to be having a seizure while visiting another patient. It is reported that the patient has been off of her seizure medications for approx three weeks prior to this event. Coronavirus screen: At this time, the client does not indicate any symptoms associated with coronavirus-19. Ebola Screen: No symptoms or risks identified at this time. Initial Sepsis Screen: Does the patient meet any 2 criteria? No. Patient's initial sepsis screen is negative. Does the patient have a suspected source of infection? No. Patient's initial sepsis screen is negative. Risk Assessment: Do you want to hurt yourself or someone else? Patient reports no desire to harm self or others. Onset of symptoms was April 28, 2022. 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 - Family history:: not pertinent. - Social history:: Patient uses Smoking status: Patient reports the use of cigarette tobacco products. Screenin:03 Abuse screen: Denies threats or abuse. Nutritional screening: No deficits noted. ap3 Tuberculosis screening: No symptoms or risk factors identified. Fall Risk Fall in past 12 months (25 points). Secondary diagnosis (15 points) seizures, IV access (20 points). Ambulatory Aid- None/Bed Rest/Nurse Assist (0 pts). Gait- Normal/Bed Rest/Wheelchair (0 pts) Mental Status- Oriented to own ability (0 pts). Total Pantoja Fall Scale indicates High Risk Score (45 or more points). Fall prevention measures have been instituted. Side Rails Up X 2 Placed Close to Nursing Station Frequent Obs/Assessments Occuring Family Present and informed to notify staff if the need to leave the bedside As available patient and family educated on Fall Prevention Program and Strategies. Assessment: 06:52 General: PT was visitor to ED with significant other. Pt had a seizure. This RN kd3 assisted patient to the ground, protecting the head. Pt turned to the side, oxygen applied, suction set up. seizure lasted approximately 2 minutes. Pt assisted to bed and after speaking to significant other, decided to check in. . 08:07 General: Appears in no apparent distress. Behavior is calm. Pain: Complains of pain in ap3 head. Neuro: Level of Consciousness is awake, alert, obeys commands, Oriented to person, place, time, situation, Speech is normal, Facial symmetry appears normal. Cardiovascular: Patient's skin is warm and dry. Respiratory: Airway is patent Respiratory effort is even, unlabored, Respiratory pattern is regular, symmetrical. Vital Signs: 07:57 BP 107 / 71; ap3 08:05 Pulse 88; Pulse Ox 100% on R/A; ap3 ED Course: 07:03 Patient arrived in ED. ap3 07:04 Cristino Silva MD is Attending Physician. kimberlyn 07:36 Raymond Neves MD is Referral Physician. kimberlyn 07:56 Inserted saline lock: 20 gauge in right antecubital area, using aseptic technique. ap3 Blood collected. 08:05 Triage completed. ap3 08:06 Arm band placed on right wrist. ap3 08:06 Patient has correct armband on for positive identification. Bed in low position. Call ap3 light in reach. Side rails up X2. Adult w/ patient. Seizure precautions initiated. Pulse ox on. NIBP on. Door closed. Noise minimized. Warm blanket given. 08:45 Katya Paredes, VICTORINO is Primary Nurse. ap3 08:45 No provider procedures requiring assistance completed. IV discontinued, intact, ap3 bleeding controlled, No redness/swelling at site. Pressure dressing applied. Administered Medications: 07:56 Drug: Keppra (levETIRAcetam) 500 mg Route: PO; ap3 08:46 Follow up: Response: No adverse reaction ap3 07:56 Drug: NS 0.9% 1000 ml Route: IV; Rate: 1 bolus; Site: right antecubital; ap3 08:46 Follow up: IV Status: Completed infusion ap3 07:56 Drug: Zofran (Ondansetron) 4 mg Route: IVP; Site: right antecubital; ap3 08:46 Follow up: Response: No adverse reaction; Nausea is decreased ap3 07:56 Drug: TORadol (ketorolac) 30 mg Route: IVP; Site: right antecubital; ap3 08:46 Follow up: Response: No adverse reaction; Pain is decreased ap3 07:57 Drug: Ativan (LORazepam) 1 mg Route: IVP; Site: right antecubital; ap3 08:46 Follow up: Response: No adverse reaction ap3 07:57 Drug: Keppra (levETIRAcetam) 1000 mg Route: IV; Rate: per protocol; Site: right ap3 antecubital; 08:46 Follow up: IV Status: Infusion continued ap3 Medication: 08:45 VIS not applicable for this client. ap3 Outcome: 07:37 Discharge ordered by MD. sofia 08:45 Discharged to home ambulatory, with family. ap3 08:45 Condition: good 08:45 Discharge instructions given to patient, Instructed on discharge instructions, follow up and referral plans. medication usage, Demonstrated understanding of instructions, follow-up care, medications, Prescriptions given X 1. 09:42 Patient left the ED. ap3 Signatures: Cristino Silva MD MD cha Prokisch, Amanda RN RN ap3 Celia Almanza RN RN kd3
[2022-04-28 08:09] LABS: Absolute Lymphocytes (CBC) 1.7 K/uL (0.7-4.9); Hematocrit 42.2 % (36.0-45.0); MCV 91.9 fL (80-100)
[2022-04-28 08:25] LABS: Albumin 3.7 g/dL (3.4-5.0); Bilirubin Total 0.4 mg/dL (0.2-1.0); Potassium 3.9 mmol/L (3.5-5.1); Protein, Total 7.2 g/dL (6.4-8.2)
[2022-04-28 10:23] VITALS: BP 107/71; O2SAT 100
== END 2022-04-28 09:42 | disposition home or self-care (01) ==
LOC: ER 07:00
DX: G40.509 Epileptic seizures related to external causes, not intractable, without status epilepticus (principal)
CPT/HCPCS: 36415; 80053; 85025; 96365; 96375; 99284; J1953; J2405; J7030

== ENCOUNTER 2022-05-24 11:18 | Emergency (ER) | payer OTHER, SELFPAY ==
--- OUTSIDE RECORDS SUMMARY | 2022-05-24 11:22 | XMS REPORT | Continuity of Care Document ---
:1985 Author Organization [facility] t Address [address] [place] [address] Care Team Providers Name Role Phone PCP, PATIENT DOES NOT HAVE A Primary Care Physician Unavaila MARYANN Jiménez Attending Clinician Unavailable Maryann Quan MD Attending Clinician MYA HEATON Attending Clinician Unavailable Mya Heaton DO Attending Clinician MYA HEATON Admitting Clinician Unavailable Payers Payer Name Policy Type Policy Number Effective Date Expiration Date [facility] [id number] 2022 PPO 00:00:00 Problems Condition Condition Condition Status Onset Resolution Last Treating Co mments Source Name Details Category Date Date Treatment Clinician Date No known No known Disease Unive rs active active ity of problems problems [facility] Allergies, Adverse Reactions, Alerts Allergy Allergy Status Severity Reaction(s) Onset Inactive Treating Comm ents Source Name Type Date Date Clinician ANTONINA DA Active U [facility]16 [place] [facility] d [facility] No Known DA Active U 2008- [facility] Contrast 3-16 [place] Allergie 00:00: d s [facility] No Known DA Active U 2008- [facility] Food 3-16 [place] Allergie 00:00: d s [facility] No Known DA Active U 2008- [facility] Other 3-16 [facility] Allergie 00:00: d s [facility] NO KNOWN Drug Active Univers ALLERGIE Class ity of S [facility] Social History Social Habit Start Date Stop Date Quantity Comments Source Exposure to 2022-05-08 2022-05-18 Not sure [facility] SARS-CoV-2 (event) 00:00:00 00:04:00 Medica l Branch [facility] At [birth year] [facility] [place] [facility] 00:00:00 Medical Branch Smoking Status Start Date Stop Date Source Tobacco smoking consumption Univ [facility] Medical unknown Branch Medications Ordered Filled Start Stop Current Ordering Indication Dosage Frequency Signature Comments Components Source Medication Medication Date Date Medication? Clinician (SIG) Name Name levETIRAcet 2021-06 No 1000mg 1,000 mg, Univers am (KEPPRA) 07-19 IV ity of in NACL 07:00: 07:28 Piggyback, Farhan as (ISO-OS) 00 :00 ONCE, 1 Medical 1,000 dose, On Branch mg/100 mL Kylie RTU 05/18/22 at 0100, Administer over 15 Minutes, 100 mL acetaminoph 2021-06 No 1000mg 1,000 mg, Univers en 07-19 Oral, ity of (TYLENOL) 06:30: 06:24 ONCE, 1 [place] tablet 00 :00 dose, On Medical 1,000 mg Kylie Branch 05/18/22 at 0030, SYDNIE levETIRAcet 2021-06 Yes [id number] 500mg Take 1 Univers am (KEPPRA) 07-19 tablet by ity of 500 mg 00:00: mouth in [place] tablet 00 the Medical morning Branch and 1 tablet in the evening. methylpredn 2021-06 Yes 125mg 125 mg, Un king isolone sod 0-25 Intravenou it y of succ 23:00: s, Q6H, [place] (SOLU-MEDRO 00 First dose Me dical L) on Tue Branch injection 04/04/22 125 mg at 1800, Until Discontinu ed, Routine iopamidol 2021-06- No [id number] 65mL 65 mL, U nivers (ISOVUE 0-25 10-25 Intravenou ity o f 370-500 mL) 22:15: 21:18 s, ONCE, 1 [place] injection 00 :00 dose, On Medica l 65 mL [facility] 04/04/22 at 1715, Routine ondansetron 2021-06- No 4mg 4 mg, Slow Univers (ZOFRAN 0-25 10-25 IV Push, ity of (PF)) 21:15: 20:34 ONCE, 1 [place] injection 4 00 :00 dose, On Medi caden mg [facility] 04/04/22 at 1615, Routine NaCl 0.9% 2021-06- No 1000mL at 999 Uni vers (NS) bolus 0-25 10-25 mL/hr, ity of infusion 20:15: 21:31 1,000 mL, Farhan as 1,000 mL 00 :00 IV Medical Infusion, Branch ONCE, 1 dose, On [facility] 04/04/22 at 1515, STAT morpHINE (4 2021-06 Yes 4mg 4 mg, Slow Univers mg/mL) 0-25 IV Push, ity of injection 4 20:11: Q4HPRN, Farhan as mg 27 Starting Medical on [facility] 04/04/22 at 1511, Until Discontinu ed, Routine, Pain (scale 7-10) methylPREDN 2021-06 Yes [id number] Take by [facility] ISolone 0-25 mouth ity of (MEDROL, 00:00: SEE-INSTRU Farhan as PRITESH,) 4 mg 00 CTIONS. Medica l tablets follow Sanders package directions Vital Signs Vital Name Observation Time Observation Value Comments Source Systolic blood 2022-05-18 07:53:00 106 mm[facility]Hg[facility] Diastolic blood 2022-05-18 07:53:00 57 mm[Hg] [facility] Heart rate 2022-05-18 07:53:00 66 /min [facility] Oxygen saturation in 2022-05-18 07:53:00 100 /min [facility] Arterial blood by [place] Medi caden Pulse oximetry Branch Body temperature 2022-05-18 06:06:00 37.22 Sania [facility] Res[facility] rate 2022-05-18 06:06:00 16 /min [facility] Body height 2022-05-18 06:06:00 162.6 cm [facility] Body weight 2022-05-18 06:06:00 63.504 kg [facility] BMI 2022-05-18 06:06:00 24.03 kg/m2 [facility] Systolic blood 2022-04-04 22:14:03 106 mm[Hg] [facility] Diastolic blood 2022-04-04 22:14:03 57 mm[Hg] [facility] Heart rate 2022-04-04 22:14:03 73 /min [facility] Respiratory rate 2022-04-04 22:14:03 18 /min [facility] Oxygen saturation in 2022-04-04 22:14:03 98 /min [facility] Arterial blood by [facility] Pulse oximetry Branch Body height 2022-04-04 20:09:00 162.6 cm [facility] Body weight 2022-04-04 20:09:00 58.968 kg [facility] BMI 2022-04-04 20:09:00 22.31 kg/m2 [facility] Body temperature 2022-04-04 20:09:00 37.06 Sania [facility] Procedures Procedure Date / Time Performed Performing Clinician Sour e COMP. METABOLIC PANEL 2022-05-18 06:24:00 Maryann Quan [facility] ([id number]) [facility] CBC WITH DIFF 2022-05-18 06:24:00 Maryann Quan [facility] URINALYSIS 2022-05-18 06:24:00 Maryann Quan [facility] POCT TEST 2022-05-18 06:24:00 Maryann Quan [facility] CT ABDOMEN PELVIS W 2022-04-04 21:23:12 Mya Heaton [facility] CONTRAST [facility] LIPASE 2022-04-04 20:32:00 Heaton, [facility] COMP. METABOLIC PANEL 2022-04-04 20:32:00 Heaton Mya [facility] ([id number]) [facility] CBC WITH DIFF 2022-04-04 20:32:[address] [facility] URINALYSIS 2022-04-04 20:32:00 Heaton, [facility] NOTICE OF PRIVACY 2022-04-04 19:58:09 Doctor Unassigned, No [facility] PRACTICES Name Medical Branch CONSENT/REFUSAL FOR 2022-04-04 19:57:42 Doctor Unassigned, No [facility] DIAGNOSIS AND Name [facility] Branch TREATMENT Encounters Start End Encounter Admission Attending Care Care Encounter Source Date/Time Date/Time Type Type Clinicians Facility Department ID 2022-05-18 2022-05-18 [facility] ERT [id number] Univers 00:10:00 01:54:00 MARYANN onofre [facility] 2022-05-18 2022-05-18 [facility] [id number] Univers 00:10:00 01:54:00 Maryann GRIFFITHS [id number] ity [facility] 4.2.7.2.686 [facility] [id number] [address] 2022-05-18 2022-05-18 [facility] ERT [id number] Univers 00:10:00 01:54:00 MARYANN onofre [facility] 2022-04-04 2022-04-04 Emergency [facility] ERT [id number] Univers 15:10:00 17:50:00 MYA onofre [facility] 2022-04-04 2022-04-04 Emergency [facility] [id number] Univers 15:10:00 17:50:00 Mya GIRFFITHS 350.1.13.10 i ty of [place] 4.2.7.2.686 [facility] [id number] [address] Results Test Description Test Time Test Comments Results Result Comments Source Complete Metabolic Panel 2022-05-18 06:49:31 Test Item Value Reference Range Interpretation Comme nts NA (test code = 4894799091) 137 mmol/L 135-145 K (test code = 8275626930) 4.1 mmol/L 3.5-5.0 CL (test code = 2818021828) 107 mmol/L 98-108 CO2 TOTAL (test code = 6621153718) 16 mmol/L 23-31 L AGAP (test code = 8180969561) 2-16 BUN (test code = 4957225755) 9 mg/dL 7-23 GLUCOSE (test code = 6789370800) 106 mg/dL 70-110 CREATININE (test code = 0.69 mg/dL 0.50-1.04 2364913002) TOTAL BILI (test code = 0.3 mg/dL 0.1-1.8 2593952659) CALCIUM (test code = 7933526176) 8.7 mg/dL 8.6-10.6 T PROTEIN (test code = 7612033174) 7.1 g/dL 6.3-8.2 ALBUMIN (test code = 4892414089) 4.6 g/dL 3.5-5.0 ALK PHOS (test code = 3380396631) 69 U/L 34-122 ALTv (test code = 1742-6) 23 U/L 5-35 AST(SGOT) (test code = 0409694097) 25 U/L 13-40 eGFR (test code = 9672704033) mL/min/1.73m2 RAY (test code = RAY) Association of Glomerular Filtration Rate (GFR) and Staging of Kidney Disease* + +-------- + ------+| GFR (mL/min/1.73 m2) ?| With Kidney Damage ?| ?Without Kidney Damage+ +-- + +| ?>90 ?| ?Stage one ?| ? Normal ?+ +------- + -------+| ?60-89 ?| ?Stage two ?| ? Decreased GFR ? + +-------- + ------+| ?30-59 ?| ?Stage three ?| ? Stage three ? + +-------- + ------+| ?15-29 ?| ?Stage four ? | ? Stage four ?+ +------- + -------+| ?<15 (or dialysis) ? ?| ?Stage five ? | ? Stage five ?+ +------- + -------+ *Each stage assumes the associated GFR level has been in effect for at least three months. ?Stages 1 to 5, with or without kidney disease, indicate chronic kidney disease. Notes: Determination of stages one and two (with eGFR >59mL/min/1.73 m2) requires estimation of kidney damage for at least three months as defined by structural or functional abnormalities of the kidney, manifested by either:Pathological abnormalities or Markers of kidney damage (including abnormalities in the composition of the blood or urine or abnormalities in imaging tests). Lab Interpretation (test code = Abnormal 04391-5) [facility] with [id number] 06:37:35 Test Item Value Reference Range Interpretation Comments WBC (test code = See_Comment [Automated message] 4890-2) The system Violet Grey generated this result transmitted ref erence range: 4.30 - 1 1.10 10*3/?L. The re ference range was not u sed to interpret this result as normal/abnor mal. RBC (test code = See_Comment [Automated message] 569-8) The system Violet Grey generated this result transmitted ref erence range: 3.93 - 5 .25 10*6/?L. The re ference range was not u sed to interpret this result as normal/abnor mal. HGB (test code = 14.6 g/dL 11.6-15.0 718-7) HCT (test code = 43.8 % 35.7-45.2 4544-3) MCV (test code = 94.6 fL 80.6-95.5 787-2) MCH (test code = 31.5 pg 25.9-32.8 785-6) MCHC (test code = 33.3 g/dL 31.6-35.1 786-4) RDW-SD (test code 42.5 fL 39.0-49.9 = 18453-4) RDW-CV (test code 12.2 % 12.0-15.5 = 788-0) PLT (test code = See_Comment [Automated message] 947-3) The system Violet Grey generated this result transmitted ref erence range: 166 - 35 8 10*3/?L. The re ference range was not u sed to interpret this result as normal/abnor mal. MPV (test code = 9.9 fL 9.5-12.9 45158-1) NRBC/100 WBC (test See_Comment [Automat ed message] code = 7196310080) The syste m which generated this result transmitted ref erence range: 0.0 - 10 .0 /100 WBCs. The refer ence range was not u sed to interpret this result as normal/abnor mal. NRBC x10^3 (test See_Comment [Automated message] code = 1505750685) The syste m which generated this result transmitted ref erence range: 10*3/?L. The reference range was not used to interpr et this result as normal/abnormal . GRAN MAT (NEUT) % 48.2 % (test code = 770-8) IMM GRAN % (test 0.50 % code = 5572143669) LYMPH % (test code 39.1 % = 736-9) MONO % (test code 7.3 % = 5905-5) EOS % (test code = 4.4 % 713-8) BASO % (test code 0.5 % = 706-2) GRAN MAT 3.97 10*3/uL 1.88-7.09 x10^3(ANC) (test code = 9854170507) IMM GRAN x10^3 0.04 10*3/uL 0.00-0.06 (test code = 2315261456) LYMPH x10^3 (test 3.22 10*3/uL 1.32-3.29 code = 731-0) MONO x10^3 (test 0.60 10*3/uL 0.33-0.92 code = 742-7) EOS x10^3 (test 0.36 10*3/uL 0.03-0.39 code = 711-2) BASO x10^3 (test 0.04 10*3/uL 0.01-0.07 code = 704-7) [facility] [id number] 06:24:00 Test Item Value Reference Range Interpretation Comments POCT PREG (test code = 1605) Negative On board controls acceptable with Positive C Line (test code = 3574) POCT PREG LOT # (test code = 3575) [id number] POCT PREG TEST DATE (test 09/09/2023 code = 3576) Lab Interpretation (test code = Normal 44220-0) [facility] [id number] 13:37:00 Test Item Value Reference Range Interpretation Comments BEDSIDE CREATININE (test code = 0.6 mg/dL 0.52-1.04 N CREATBED) - US PELVIC [id number] 02:02:00 FAX: Diana Wick [phone] [place]: St: REG Name: MAGGY DUNHAM [facility] : 1985 Age/S: 33/F [address] Unit #: [id number] Loc: [place] [address] Phys: Diana Diego NPAcct: [id number] Dis Date: Status: REG ER PHONE #: [phone] Exam Date: 01/17/2019 0156 FAX #: Reason: LOWER ABD PAIN EXAMS: CPT CODE: [id number] US PELVIC COMPLETE 55024 Exam: Pelvicsonogram. Location: H 12 History: See [...] A small amount of free fluid is foundthe right adnexa. Impression: 1. Right ovarian cyst and surrounding fluid. 2. Otherwise unremarkableexam. at 0202 Reported and signed by: Gustavo New CC: Diana Diego NP Technologist: Stephani Baron RDSHRINERS HOSPITALS FOR CHILDRENT Trnscrd Date/Time/By: 01/17/2019 (0202) : By: Isha PAGE 1 Signed Report FAX: Diana Wick [phone] [place]: St: REG -- Name: MAGGY DUNHAM [facility] : 1985 Age/S: 33/F [address] Unit #: [id number] Loc: [place] [address] Phys: Diana Diego NP Acct: [id number] Dis Date: Status: REG ER PHONE #: [phone] Exam Date: 01/17/2019 0156 FAX #: [phone] Reason: LOWER ABD PAIN EXAMS: CPT CODE: [id number] US PELVIC COMPLETE 52377 (Continued) Orig Print D/T: S: 01/17/2019 (0205) PAGE 2 Signed Report- US TRANSVAGINAL NON [id number] 02:02:00 FAX: Diana Wick [phone] [place]: St: REG Name: MAGGY DUNHAM [facility] Ida : 1985 Age/S: 33/F [address] Unit #: [id number] Loc: [place] [address] Phys: Diana Diego NPAcct: [id number] Dis Date: Status: REG ER PHONE #: [phone] Exam Date: 01/17/2019 0156 FAX #: [phone] Reason: See reason on US PELVIC NON OB COMPLETE EXAMS: CPT CODE: [id number] [place] [address] Exam: Pelvic sonogram. 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 Acct: [id number] Dis Date: Status: REG ER PHONE #: [phone] Exam Date: 01/17/2019155 FAX #: [phone] Reason: See reason on US PELVIC NON OB COMPLETE EXAMS: CPT CODE: [id number] [place] [address] (Continued) Orig Print D/T: S: 01/17/2019 (0205) PAGE 2 Signed Report- DUP AB/PEL/SC/[id number] 02:02:00 FAX: Diana Wick [phone] [place]: St: REG Name: MAGGY DUNHAM [facility] : 1985 Age/S: 33/F [address] Unit #: [id number] Loc: [place] [address] Phys: Diana Diego P[employer]KER Acct: [id number] Dis Date: Status: REG ER PHONE #: [phone] Exam Date: 01/17/2019155 FAX #: [phone] Reason: See reason on US PELVIC NON OB COMPLETE EXAMS: CPT CODE: [id number] DUP AB/PEL/SC/LTD 66116 Exam: Pelvic sonogram. Location: H 12 History: [...] 1.3 cm cyst noted. The left ovary measures2.8 x 1.9 x 1.8 cm. There is [...] PAGE 1 Signed Report FAX: Diana Wick [phone] [place]: St: REG Name: MAGGY DUNHAM [facility] : 1985 Age/S: 33/F [address] Unit #: [id number] Loc: [place] [address] Phys: Diana Diego NP Acct: [id number] Dis Date: Status: REG ER PHONE #: [phone] Exam Date: 01/17/2019 0156 FAX #: [phone] Reason: See reason on US PELVIC NON OB COMPLETE EXAMS: CPT CODE: [id number] DUP AB/PEL/SC/LTD 74269 (Continued) Orig Print D/T: S: 01/17/2019 (0205) PAGE 2 Signed ReportBASIC METABOLIC [id number] 00:29:00 Test Item Value Reference Range Interpretation [...] 9.7 mg/dL 8.4-10.2 N CA) LIVER FUNCTION [id number] 00:29:00 Test Item Value Reference Range Interpretation [...] U/L 38-126 N (test code = ALKP) [id number] 00:29:00 Test Item Value Reference Range Interpretation Comments LIPASE (test code = LIP) 44 U/L 23-300 N - CT ABD PELVIS [id number] 00:29:00 FAX: Diana Wick [phone] [place]: St: REG Name: MAGGY DUNHAM [facility] : 1985 Age/S: 33/F [address] Unit: [id number] Loc: [place] [address] Phys: Diana Diego NP Acct: [id number] Dis Date: Status: REG ER PHONE #: [phone] Exam Date: 01/17/2019 0018 FAX #: [phone] Reason: diffuse abd pain EXAMS: CPT CODE: [id number] CT ABD PELVIS W/CONT 22126 EXAM: - CT ABD PELVIS W/CONT LOCATION: [...] 1 Signed Report (CONTINUED) FAX: Diana Wick [phone] [place]: St: REG -- Name: MAGGY DUNHAM [facility] : 1985 Age/S: 33/F [address] Unit: [id number] Loc: [place] [address] Phys: Diana Diego P[employer]KER Acct: [id number] Dis Date: Status: REGER PHONE #: [phone] Exam Date: 01/17/2019 0018 FAX #: [phone] Reason: diffuse abd pain EXAMS: CPT CODE: [id number] CT ABD PELVIS W/CONT 45976 (Continued) Vascular: No evidence of aneurysm or [...] signed by: Umair FERNANDEZ, Tramaine CC: Diana Diego NPTechnologist: Soo Ford; ANDREE WEINBERG Trnscrd Dt/Tm: 01/17/2019 (0029) [email or web address] Orig Print D/T: S: 01/17/2019 (0032 PAGE 2 Signed ReportHCG [id number] 00:23:00 Test Item Value Reference Range Interpretation [...] etested after 48 hours toconfirm . URINALYSIS [id number] 00:22:00 Test Item Value Reference Range Interpretation [...] /HPF 0-5 (RARE) = SQU) CBC W/AUTO [id number] 00:19:00 Test Item Value Reference Range Interpretation [...] code = BA#) 0.03 x10 3/uL 0.0-0.1 N"
[2022-05-24] MEDS ORDERED: IBUPROFEN 400 MG TAB ONE (11:53)
--- NOTE | 2022-05-24 13:01 | RAD REPORT ---
EXAM DESCRIPTION: RAD - Wrist Right 3 View - 05/24/2022 12:52 pm CLINICAL HISTORY: Right wrist pain status post injury FINDINGS: No fracture or dislocation is seen. If the patient continues to have symptoms to suggest a n occult fracture then a followup plain film series in 7 days would be recommended.
--- NOTE | 2022-05-24 13:03 | RAD REPORT ---
EXAM DESCRIPTION: RAD - Hand Right 3 View - 05/24/2022 12:52 pm CLINICAL HISTORY: Right hand pain status post injury FINDINGS: No fracture or dislocation is seen.
--- NOTE | 2022-05-24 13:18 | ER ---
Nurse's Notes [facility] Name: Erika Wise Age: 36 yrs Sex: Female : 1985 Arrival Date: 05/24/2022 Time: 11:20 Bed 24 Private MD: Diagnosis: Contusion of hand;Sprain of other part of wrist and hand Presentation: 05/24 11:48 Chief complaint: Patient states: there was water on the floor and I slipped and hit my 5 hand. Coronavirus screen: Vaccine status: Patient reports being unvaccinated. Client denies travel out of the [place] in the last 14 days. Ebola Screen: Patient negative for fever greater than or equal to 101.5 degrees Fahrenheit, and additional compatible Ebola Virus Disease symptoms Patient denies exposure to infectious person. Patient denies travel to an Ebola-affected area in the 21 days before illness onset. Initial Sepsis Screen: Does the patient meet any 2 criteria? No. Patient's initial sepsis screen is negative. Does the patient have a suspected source of infection? No. Patient's initial sepsis screen is negative. Risk Assessment: Do you want to hurt yourself or someone else? Patient reports no desire to harm self or others. 11:48 Method Of Arrival: Ambulatory [facility] 11:48 Acuity: PIOTR 4 [facility] 13:18 Onset of symptoms was May 24, 2022. 6 Triage Assessment: 11:49 General: Appears in no apparent distress. uncomfortable, slender, Behavior is calm, 5 cooperative, appropriate for age. Pain: Complains of pain in right hand. Musculoskeletal: Reports pain in right hand. Injury Description: fall. 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 - Social history:: Smoking status: Patient reports the use of cigarette tobacco products, denies chronic smoking, but will smoke occasionally. Screenin:18 Abuse screen: Denies threats or abuse. Nutritional screening: No deficits noted. em6 Tuberculosis screening: No symptoms or risk factors identified. Fall Risk Mental Status- Total Pantoja Fall Scale indicates No Risk (0-24 pts). 13:28 [facility] ED Fall Risk Assessment (Adult) Score/Fall Risk Level 0 - 2 = Low Risk. Humpty em6 Dumpty Scale Fall Assessment Tool (age< 18yrs). Assessment: 13:17 General: Appears in no apparent distress. Behavior is cooperative. Pain: Complains of em6 pain in right hand Pain does not radiate. Pain currently is 8 out of 10 on a pain scale. Neuro: Flores Agitation-Sedation Scale (RASS): 0 - Alert and Calm. Cardiovascular: Patient's skin is warm and dry. Respiratory: Airway is patent Respiratory effort is even, unlabored, Respiratory pattern is regular, symmetrical. GI: No signs and/or symptoms were reported involving the gastrointestinal system. : No signs and/or symptoms were reported regarding the genitourinary system. EENT: No signs and/or symptoms were reported regarding the EENT system. Derm: No signs and/or symptoms reported regarding the dermatologic system. Musculoskeletal: Circulation, motion, and sensation intact. Capillary refill < 3 seconds, Range of motion: intact in all extremities. Vital Signs: 11:48 BP 132 / 84; Pulse 84; Resp 16; Temp 98.6; Pulse Ox 98% ; Weight 66.68 kg; Height 5 ft. jh5 4 in. (162.56 cm); Pain 8/10; 13:26 BP 116 / 76; Pulse 81; Resp 18; Pulse Ox 98% on R/A; em6 11:48 Body Mass Index 25.23 (66.68 kg, 162.56 cm) 5 ED Course: 11:20 Patient arrived in ED. as 11:22 Nitin Duque PA is PHCP. jmm 11:22 Cristino Silva MD is Attending Physician. jmm 11:49 Triage completed. jh5 11:49 Arm band placed on right wrist. jh5 12:54 Wrist Right 3 View XRAY In Process Unspecified. EDMS 12:54 Hand Right 3 View XRAY In Process Unspecified. EDMS 13:14 Marva Castellon, VICTORINO is Primary Nurse. em6 13:16 Gonzalo Velez MD is Referral Physician. jmm 13:18 Bed in low position. Call light in reach. Side rails up X 1. Pulse ox on. NIBP on. Warm em6 blanket given. 13:27 thumb spica splint applied. provider patient with paper form of product. em6 13:27 No provider procedures requiring assistance completed. Patient did not have IV access em6 during this emergency room visit. Administered Medications: 11:53 Drug: Ibuprofen 800 mg Route: PO; jh5 12:50 Follow up: Response: No adverse reaction em6 Medication: 13:26 VIS not applicable for this client. em6 Outcome: 13:17 Discharge ordered by MD. verma 13:27 Discharged to home ambulatory. em6 13:27 Condition: stable 13:27 Discharge instructions given to patient, Instructed on discharge instructions, follow up and referral plans. medication usage, splint care Demonstrated understanding of instructions, follow-up care, medications, splint care, Prescriptions given X 1. 13:29 Patient left the ED. em6 Signatures: Dispatcher [employer] EDMS Nitin Duque PA PA jmm Martinez, Amelia as Rees, Jessica RN RN jh5 Marva Castellon RN RN em6
--- NOTE | 2022-05-24 13:19 | EDPHYS ---
Physician Documentation [facility] Name: Erika Wise Age: 36 yrs Sex: Female : 1985 Arrival Date: 05/24/2022 Time: 11:20 Bed 24 Private MD: ED Physician Cristino Silva HPI: 05/24 11:50 This 36 yrs old Female presents to ER via Ambulatory with complaints of Hand Injury, jmm Fall Injury. 11:50 The patient or guardian reports injury, pain. Onset: The symptoms/episode jmm began/occurred acutely, last night. Modifying factors: The symptoms are alleviated by nothing, the symptoms are aggravated by movement. This is a 36 year old female with a history of fibromyalgias, ulcerative colitis, epilepsy that presents to the ED with complaints of right hand and wrist pain after a fall which occurred last night. Patient states she slipped. Pain is mainly to the palm but does have some pain to the wrist. . 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 - Social history:: Smoking status: Patient reports the use of cigarette tobacco products, denies chronic smoking, but will smoke occasionally. ROS: 11:50 Constitutional: Negative for fever, chills, and weight loss, Cardiovascular: Negative jmm for chest pain, palpitations, and edema, Respiratory: Negative for shortness of breath, cough, wheezing, and pleuritic chest pain. 11:50 MS/extremity: Positive for injury or acute deformity. 11:50 All other systems are negative. Exam: 11:50 Constitutional: This is a well developed, well nourished patient who is awake, alert, jmm and in no acute distress. Head/Face: atraumatic. Eyes: EOMI, no conjunctival erythema appreciated ENT: Moist Mucus Membranes Neck: Trachea midline, Supple Chest/axilla: Normal chest wall appearance and motion. Cardiovascular: Regular rate and rhythm. No edema appreciated Respiratory: Normal respirations, no respiratory distress appreciated Abdomen/GI: Non distended Back: Normal ROM Skin: General appearance color normal 11:50 Musculoskeletal/extremity: mild right hand palmar pain on palpation, full radial pulse, (+) Snuff Box tenderness, NVI. 11:50 Skin: Appearance: Color: normal in color. 11:50 Neuro: Orientation: is normal, Mentation: is normal, Memory: is normal. 11:50 Psych: Behavior/mood is pleasant, cooperative. Vital Signs: 11:48 BP 132 / 84; Pulse 84; Resp 16; Temp 98.6; Pulse Ox 98% ; Weight 66.68 kg; Height 5 ft. [facility] 4 in. (162.56 cm); Pain 8/10; 13:26 BP 116 / 76; Pulse 81; Resp 18; Pulse Ox 98% on R/A; em6 11:48 Body Mass Index 25.23 (66.68 kg, 162.56 cm) [facility] Procedures: 13:14 Splinting: Splint applied to right hand using thumb spica. applied by tech. Examined by luci me, post splint application: neurovascular intact, 2+ distal pulses palpable, brisk capillary refill noted, Patient tolerated well. MDM: 11:41 Patient medically screened. [facility] 13:15 Data reviewed: vital signs, nurses notes. Counseling: I had a detailed discussion with luci the patient and/or guardian regarding: the historical points, exam findings, and any diagnostic results supporting the discharge/admit diagnosis, radiology results, the need for outpatient follow up, to return to the emergency department if symptoms worsen or persist or if there are any questions or concerns that arise at home. ED course: Thumb spica used due to snuff box tenderness. I recommended patient follow up with hand due to suspicion for scaphoid fracture. Patient understood. . 05/24 11:43 Order name: Wrist Right 3 View XRAY; Complete Time: 13:02 [facility] 05/24 11:43 Order name: Hand Right 3 View XRAY; Complete Time: 13:06 [facility] 05/24 11:44 Order name: Ice pack; Complete Time: 11:50 [facility] 05/24 13:07 Order name: Thumb Spica Splint; Complete Time: 13:25 [facility] Administered Medications: 11:53 Drug: Ibuprofen 800 mg Route: PO; [facility] 12:50 Follow up: Response: No adverse reaction em6 Disposition Summary: 05/24/22 13:17 Discharge Ordered Location: Home jmm Condition: Stable jmm Diagnosis - Contusion of hand jmm - Sprain of other part of wrist and hand jmm Followup: jm - With: Gonzalo Velez MD - When: 2 - 3 days - Reason: Recheck today's complaints, Continuance of care, Re-evaluation by your physician Discharge Instructions: - Discharge Summary Sheet jmm - Hand Contusion jmm - Wrist Sprain, Adult jmm Forms: - Medication Reconciliation Form jmm - Thank You Letter jmm - Antibiotic Education jmm - Prescription Opioid Use jmm Prescriptions: - orphenadrine citrate 100 mg Oral Tablet Sustained Release - take 1 tablet by ORAL route 2 times per day As needed; 20 tablet; Refills: 0, jmm Product Selection Permitted Signatures: Dispatcher [employer] Cristino Espino MD MD cha Mickail, Joel, PA PA jmm Rees, Jessica, RN RN jh5 RavinderMarva RN em6
[2022-05-24 13:37] VITALS: TEMP 98.6; O2SAT 98
[2022-05-24 13:38] VITALS: BP 116/76
== END 2022-05-24 13:29 | disposition home or self-care (01) ==
LOC: ER 11:18
DX: S63.8X1A Sprain of other part of right wrist and hand, initial encounter (principal); S60.221A Contusion of right hand, initial encounter; Z72.0 Tobacco use

== ENCOUNTER 2022-12-27 13:15 | Emergency (ER) | payer SELFPAY ==
--- OUTSIDE RECORDS SUMMARY | 2022-12-27 13:19 | XMS REPORT | Continuity of Care Document ---
:1985 Author Organization [facility] t Address [address] [place] [address] Care Team Providers Name Role Phone PCP, PATIENT DOES NOT HAVE A Primary Care Physician Unavaila DARBY Howard Attending Clinician Unavailable Darby Soto Attending Clinician MARYANN QUAN Attending Clinician Unavailable Maryann Quan MD Attending Clinician MYA HEATON Attending Clinician Unavailable Mya Heaton DO Attending Clinician MYA HEATON Admitting Clinician Unavailable Payers Payer Name Policy Type Policy Number Effective Date Expiration Date S [facility] [id number] 2022 PPO 00:00:00 Problems Condition Condition Condition Status Onset Resolution Last Treating Co mments Source Name Details Category Date Date Treatment Clinician Date No known No known Disease Unive rs active active ity of problems problems [facility] Allergies, Adverse Reactions, Alerts Allergy Allergy Status Severity Reaction(s) Onset Inactive Treating Comm ents Source Name Type Date Date Clinician ANTONINA SHEPPARD Active U [facility] 3-16 [place] [facility] No Known DA Active U 2009-0 [facility] Contrast 3-16 [place] Allergie 00:00: d [facility] No Known DA Active U 2009-0 [facility] Food 3-16 [place] Allergie 00:00: d s [facility] No Known DA Active U 2009-0 [facility] Other 3-16 [place] Allergie 00:00: d s [facility] NO KNOWN Drug Active Univers ALLERGIE Class ity of S [place] [facility] Social History Social Habit Start Date Stop Date Quantity Comments Source Exposure to 2022-06-20 2022-06-30 Not sure [facility] SARS-CoV-2 (event) 00:00:00 17:57:00 Medica l Branch Sex Assigned At [birth year] [facility] 00:00:00 00:00:00 Medical Branch Smoking Status Start Date Stop Date Source Tobacco smoking consumption [facility] Branch Medications Ordered Filled Start Stop Current Ordering Indication Dosage Frequency Signature Comments Components Source Medication Medication Date Date Medication? Clinician (SIG) Name Name levETIRAcet 2022- No 1500mg 1,500 mg, Univers am (KEPPRA) 07-01 IV ity of in NACL 01:00: 01:16 Piggyback, Farhan as (ISO-OS) 00 :00 ONCE, 1 Medical 1,500 dose, On Branch mg/100 mL Fri RTU 06/30/22 at 1900, Administer over 15 Minutes, 100 mL levETIRAcet 2022- No [id number] 500mg Take 1 Univers am (KEPPRA) 06-30 tablet by it y of 500 mg 00:00: 05:59 mouth in [place] tablet 00 :00 the Medical morning Branch and 1 tablet in the evening. Do all this for 30 days. levETIRAcet 2021-06 No 1000mg 1,000 mg, Univers am (KEPPRA) 07-19 IV ity of in NACL 07:00: 07:28 Piggyback, Farhan as (ISO-OS) 00 :00 ONCE, 1 Medical 1,000 dose, On Branch mg/100 mL Kylie RTU 05/18/22 at 0100, Administer over 15 Minutes, 100 mL acetaminoph 2021-06- No 1000mg 1,000 mg, Univers en -08 12-08 Oral, ity of (TYLENOL) 06:30: 06:24 ONCE[place] 1 [place] tablet [place] dose, On Medical 1,000 mg [facility] 05/18/22 at 0030, SYDNIE levETIRAcet 2021-06 Yes [id number] 500mg Take 1 Univers am (KEPPRA) 2-08 tablet by ity of 500 mg 00:00: mouth in [place] tablet 00 the Medical morning Branch and 1 tablet in the evening. levETIRAcet 2021-06- No [id number] 500mg Take 1 Univers am (KEPPRA) 07-19- tablet by it y of 500 mg 00:00: 00:00 mouth in [place] tablet 00 :00 the Medical morning Branch and 1 tablet in the evening. methylpredn 2021-06 Yes 125mg 125 mg, Un king isolone sod 0-25 Intravenou it y of succ 23:00: s, Q6H, [place] (SOLU-MEDRO 00 First dose Me dical L) on [facility] Branch injection 04/04/22 125 mg at 1800, Until Discontinu ed, Routine iopamidol 2021-06- No [id number] 65mL 65 mL, U nivers (ISOVUE 0-25 10-25 Intravenou ity o f 370-500 mL) 22:15: 21:18 s, ONCE, 1 [place] injection 00 :00 dose, On Medica l 65 mL [facility] 04/04/22 at 1715, Routine ondansetron 2021-06- No 4mg 4 mg, Slow Univers (ZOFRAN 0-25 10-25 IV Push, ity of (PF)) 21:15: 20:34 ONCE, 1 [place] injection 4 00 :00 dose, On Medi caden mg [facility] 04/04/22 at 1615, Routine NaCl 0.9% 2021-06- No 1000mL at 999 Uni vers (NS) bolus 0-25 10-25 mL/hr, ity of infusion 20:15: 21:31 1,000 mL, Farhan as 1,000 mL 00 :00 IV Medical Infusion, Branch ONCE, 1 dose, On [facility] 04/04/22 at 1515, STAT morpHINE (4 2021-06 Yes 4mg 4 mg, Slow Univers mg/mL) 0-25 IV Push, ity of injection 4 20:11: Q4HPRN, Farhan as mg 27 Starting Medical on [facility] 04/04/22 at 1511, Until Discontinu ed, Routine, Pain (scale 7-10) methylPREDN 2021-06 Yes [id number] Take by Univers ISolone 0-25 mouth ity of (MEDROL, 00:00: SEE-INSTRU Farhan as PRITESH,) 4 mg 00 CTIONS. Medica l tablets follow Branch package directions methylPREDN 2021-06 Yes [id number] Take by Univers ISolone 0-25 mouth ity of (MEDROL, 00:00: SEE-INSTRU Farhan as PRITESH,) 4 mg 00 CTIONS. Medica l tablets follow Branch package directions Vital Signs Vital Name Observation Time Observation Value Comments Source Systolic blood 2022-07-01 02:42:00 99 mm[Hg] Univer sity [facility] Diastolic blood 2022-07-01 02:42:00 51 mm[Hg] [facility] rate 2022-07-01 02:42:00 72 /min [facility] Respiratory rate 2022-07-01 02:42:00 18 /min [facility] Oxygen saturation in 2022-07-01 02:42:00 98 /min [facility] Arterial blood by [facility] Pulse oximetry [place] Body temperature 2022-06-30 23:56:00 36.61 Sania [facility] Body height 2022-06-30 23:56:00 162.6 cm [facility] Body weight 2022-06-30 23:56:00 63.504 kg [facility] BMI 2022-06-30 23:56:00 24.03 kg/m2 [facility] Systolic blood 2022-05-18 07:53:00 106 mm[Hg] Univer sity of [facility] Diastolic blood 2022-05-18 07:53:00 57 mm[Hg] Unive rsity [facility] Heart rate 2022-05-18 07:53:00 66 /min [facility] Oxygen saturation in 2022-05-18 07:53:00 100 /min University of Arterial blood by [facility] Pulse oximetry Branch Body temperature 2022-05-18 06:06:00 37.22 Sania [facility] Respiratory rate 2022-05-18 06:06:00 16 /min [facility] Body height 2022-05-18 06:06:00 162.6 cm Universi ty of [facility] Body weight 2022-05-18 06:06:00 63.504 kg Universi ty [facility] BMI 2022-05-18 06:06:00 24.03 kg/m2 Universi ty [facility] Systolic blood 2022-04-04 22:14:03 106 mm[Hg] [facility] Diastolic blood 2022-04-04 22:14:03 57 mm[Hg] [facility] Heart rate 2022-04-04 22:14:03 73 /min Universi ty [facility] Respiratory rate 2022-04-04 22:14:03 18 /min [facility] Oxygen saturation in 2022-04-04 22:14:03 98 /min University of Arterial blood by [facility] Pulse oximetry Branch Body temperature 2022-04-04 20:09:00 37.06 Sania [facility] Body height 2022-04-04 20:09:00 162.6 cm Universi ty [facility] Body weight 2022-04-04 20:09:00 58.968 kg Universi [facility] BMI 2022-04-04 20:09:00 22.31 kg/m2 [facility] Procedures Procedure Date / Time Performed Performing Clinician Sour e COMP. METABOLIC PANEL 2022-07-01 00:58:00 Darby Soliz [facility] ([id number]) [facility] CBC WITH DIFF 2022-07-01 00:58:00 Darby Soliz [facility] URINALYSIS 2022-07-01 00:58:00 Darby Soliz [facility] CONSENT/REFUSAL FOR 2022-06-30 23:51:57 Doctor Unassigned, No Un [facility] DIAGNOSIS AND Name [facility] TREATMENT COMP. METABOLIC PANEL 2022-05-18 06:24:00 Maryann Quan [facility] ([id number]) Medical Branch CBC WITH DIFF 2022-05-18 06:24:00 Maryann Quan [facility] URINALYSIS 2022-05-18 06:24:00 TonyutMaryann [facility] POCT TEST 2022-05-18 06:24:00 Maryann Quan [facility] CT ABDOMEN PELVIS W 2022-04-04 21:23:12 Mya Heaton [facility] CONTRAST [facility] Branch LIPASE 2022-04-04 20:32:00 Singer [facility] COMP. METABOLIC PANEL 2022-04-04 20:32:00 Singer Mya [facility] ([id number]) Medical [place] CBC WITH DIFF 2022-04-04 20:32:00 Singer [facility] URINALYSIS 2022-04-04 20:32:00 Singer [facility] NOTICE OF PRIVACY 2022-04-04 19:58:09 Doctor Unassigned, No Univ [facility] PRACTICES Name Medical Branch CONSENT/REFUSAL FOR 2022-04-04 19:57:42 Doctor Unassigned, No [facility] DIAGNOSIS AND [facility] Medical [place] TREATMENT Encounters Start End Encounter Admission Attending Care Care Encounter Source Date/Time Date/Time Type Type Clinicians Facility Department ID 2022-08-02 2022-08-02 Outpatient [facility] [id number] Kenneth 12:58:27 12:58:[address] [facility] 2022-08-01 2022-08-01 Outpatient [facility] [id number] Kenneth 16:52:08 16:52:08 [address] [place] 2022-06-30 2022-06-30 Emergency X TANYA SOLIZ ERT [id number] Univers 17:57:00 20:43:00 [facility] 2022-06-30 2022-06-30 Emergency TANYA Soliz [id number] Univers 17:57:00 20:43:00 Darby GRIFFITHS 350.1.13.10 i ty [facility] 4.2.7.2.686 [facility] [id number] [address] 2022-05-18 2022-05-18 Emergency [facility] E[facility] [id number] Univers 00:10:00 01:54:00 KIMI jemima [facility] 2022-05-18 2022-05-18 [facility] [id number] Univers 00:10:00 01:54:00 Maryann GRIFFITHS 350.1.13.10 ity [facility] 4.2.7.2.686 [facility] [id number] [address] 2022-05-18 2022-05-18 Emergency X [facility]LY [facility] ERT [id number] Univers 00:10:00 01:54:00 [facility] 2022-04-04 2022-04-04 Emergency [facility] ERT [id number] Univers 15:10:00 17:50:00 MYA onofre [facility] 2022-04-04 2022-04-04 Emergency [facility] [id number] Univers 15:10:00 17:50:00 Mya GRIFFITHS 350.1.13.10 i ty of [place] 4.2.7.2.686 [facility] [id number] [address] Results Test Description Test Time Test Comments Results Result Comments Source COMP. METABOLIC PANEL ([id number]) 2022-07-01 01:28:33 Test Item Value Reference Range Interpretation Comme nts NA (test code = 7711319138) 140 mmol/L 135-145 K (test code = 5581791245) 4.5 mmol/L 3.5-5.0 CL (test code = 5521874276) 105 mmol/L 98-108 CO2 TOTAL (test code = 28 mmol/L 23-31 5588245858) AGAP (test code = 0808204535) 2-16 BUN (test code = 5575600083) 7 mg/dL 7-23 GLUCOSE (test code = 6894796884) 81 mg/dL 70-110 CREATININE (test code = 0.59 mg/dL 0.50-1.04 7983022804) TOTAL BILI (test code = 0.8 mg/dL 0.1-1.7 5536396068) CALCIUM (test code = 4465472064) 9.0 mg/dL 8.6-10.6 T PROTEIN (test code = 7.8 g/dL 6.3-8.2 6645203198) ALBUMIN (test code = 8764126808) 4.8 g/dL 3.5-5.0 ALK PHOS (test code = 2751624748) 60 U/L 34-122 ALTv (test code = 1742-6) 20 U/L 5-35 AST(SGOT) (test code = 31 U/L 13-40 9756290102) eGFR (test code = 6645510963) mL/min/1.73m2 RAY (test code = RAY) Association of Glomerular Filtration Rate (GFR) and Staging of Kidney Disease* + +--------- + ----+| GFR (mL/min/1.73 m2) ?| With Kidney Damage ?| ?Without Kidney Damage+ +--- + +| ?>90 ?| ?Stage one ?| ? Normal ?+ +-------- + -----+| ?60-89 ?| ?Stage two ?| ? Decreased GFR ? + +--------- + ----+| ?30-59 ?| ?Stage three ?| ? Stage three ? + +--------- + ----+| ?15-29 ?| ?Stage four ? | ? Stage four ?+ +-------- + -----+| ?<15 (or dialysis) ? ?| ?Stage five ? | ? Stage five ?+ +-------- + -----+ *Each stage assumes the associated GFR level [...] or urine or abnormalities in imaging tests). [facility] WITH [id number] 01:11:11 Test Item Value Reference Range Interpretation Comments WBC (test code = See_Comment [Automated message] 6690-2) The system [employer] generated this result transmitted ref erence range: 4.30 - 1 1.10 10*3/?L. The re ference range was not u sed to interpret this result as normal/abnor mal. RBC (test code = See_Comment [Automated message] 789-8) The system [employer] generated this result transmitted ref erence range: 3.93 - 5 .25 10*6/?L. The re ference range was not u sed to interpret this result as normal/abnor mal. HGB (test code = 13.9 g/dL 11.6-15.0 718-7) HCT (test code = 40.4 % 35.7-45.2 4544-3) MCV (test code = 89.8 fL 80.6-95.5 787-2) MCH (test code = 30.9 pg 25.9-32.8 785-6) MCHC (test code = 34.4 g/dL 31.6-35.1 786-4) RDW-SD (test code 39.9 fL 39.0-49.9 = 41254-2) RDW-CV (test code 12.2 % 12.0-15.5 = 788-0) PLT (test code = See_Comment [Automated message] 777-3) The system [employer] generated this result transmitted ref erence range: 166 - 35 8 10*3/?L. The re ference range was not u sed to interpret this result as normal/abnor mal. MPV (test code = 10.3 fL 9.5-12.9 19675-7) NRBC/100 WBC (test See_Comment [Automat ed message] code = 1833314357) The [employer] which generated this result transmitted ref erence range: 0.0 - 10 .0 /100 WBCs. The refer ence range was not u sed to interpret this result as normal/abnor mal. NRBC x10^3 (test See_Comment [Automated message] code = 8038801988) The syste m which generated this result transmitted ref erence range: 10*3/?L. The reference range was not used to interpr et this result as normal/abnormal . GRAN MAT (NEUT) % 58.1 % (test code = 770-8) IMM GRAN % (test 0.10 % code = 0832893163) LYMPH % (test code 31.9 % = 736-9) MONO % (test code 5.6 % = 5905-5) EOS % (test code = 3.7 % 713-8) BASO % (test code 0.6 % = 706-2) GRAN MAT 4.04 10*3/uL 1.88-7.09 x10^3(ANC) (test code = 9010729960) IMM GRAN x10^3 0.00-0.06 (test code = 5801866799) LYMPH x10^3 (test 2.22 10*3/uL 1.32-3.29 code = 731-0) MONO x10^3 (test 0.39 10*3/uL 0.33-0.92 code = 742-7) EOS x10^3 (test 0.26 10*3/uL 0.03-0.39 code = 711-2) BASO x10^3 (test 0.04 10*3/uL 0.01-0.07 code = 704-7) [facility] [id number] 06:49:31 Test Item Value Reference Range Interpretation Comments NA (test code = 137 mmol/L 135-145 9008008660) K (test code = 4.1 mmol/L 3.5-5.0 1017541387) CL (test code = 107 mmol/L 98-108 1367015353) CO2 TOTAL (test code = 16 mmol/L 23-31 L 9218807384) AGAP (test code = 2-16 9019810609) BUN (test code = 9 mg/dL 7-23 9278560325) GLUCOSE (test code = 106 mg/dL 70-110 0407417343) CREATININE (test code = 0.69 mg/dL 0.50-1.04 4091140889) TOTAL BILI (test code = 0.3 mg/dL 0.1-1.0 1124533745) CALCIUM (test code = 8.7 mg/dL 8.6-10.6 0314258877) T PROTEIN (test code = 7.1 g/dL 6.3-8.2 0174297724) ALBUMIN (test code = 4.6 g/dL 3.5-5.0 1464290943) ALK PHOS (test code = 69 U/L 34-122 7966955362) ALTv (test code = 23 U/L 5-35 1742-6) AST(SGOT) (test code = 25 U/L 13-40 0347411926) eGFR (test code = mL/min/1.73m2 4443673536) RAY (test code = RAY) Association of Glomerular Filtration Rate (GFR) and Staging of Kidney Disease* + --+ --+ ------+| GFR (mL/min/1.73 m2) ?| With Kidney Damage ?| ?Without Kidney Damage+ --------+ --------+ +| ?>90 ?| ?Stage one ?| ? Normal ?+ ---+ ---+ -------+| ?60-89 ?| ?Stage two ?| ? Decreased GFR ? + --+ --+ ------+| ?30-59 ?| ?Stage three ?| ? Stage three ? + --+ --+ ------+| ?15-29 ?| ?Stage four ? | ? Stage four ?+ ---+ ---+ -------+| ?<15 (or dialysis) ? ?| ?Stage five ? | ? Stage five ?+ ---+ ---+ -------+ *Each stage assumes the associated GFR [...] or abnormalities in imaging tests). Lab Interpretation Abnormal (test code = 39826-4) [facility] with [id number] 06:37:35 Test Item Value Reference Range Interpretation Comments WBC (test code = See_Comment [Automated message] 6690-2) The system [employer] generated this result transmitted ref erence range: 4.30 - 1 1.10 10*3/?L. The re ference range was not u sed to interpret this result as normal/abnor mal. RBC (test code = See_Comment [Automated message] 789-8) The system [employer] generated this result transmitted ref erence range: [...] RDW-SD (test code 42.5 fL 39.0-49.9 = 09907-8) RDW-CV (test code 12.2 % 12.0-15.5 = 788-0) PLT (test code = See_Comment [Automated message] 777-3) The system [employer] generated this result transmitted ref erence range: 166 - 35 8 10*3/?L. The re ference range was not u sed to interpret this result as normal/abnor mal. MPV (test code = 9.9 fL 9.5-12.9 49871-1) NRBC/100 WBC (test See_Comment [Automat ed message] code = 9829149327) The [employer] which generated this result transmitted ref erence range: 0.0 - 10 .0 /100 WBCs. The refer ence range was not u sed to interpret this result as normal/abnor mal. NRBC x10^3 (test See_Comment [Automated message] code = 0907867493) The syste m which generated this result transmitted ref erence range: 10*3/?L. The reference range was not used to interpr et this result as normal/abnormal . GRAN MAT (NEUT) % 48.2 % (test code = 770-8) IMM GRAN % (test 0.50 % code = 4477157123) LYMPH % (test code 39.1 % = 736-9) MONO % (test code 7.3 % = 5905-5) EOS % (test code = 4.4 % 713-8) BASO % (test code 0.5 % = 706-2) GRAN MAT 3.97 10*3/uL 1.88-7.09 x10^3(ANC) (test code = 3994692121) IMM GRAN x10^3 0.04 10*3/uL 0.00-0.06 (test code = 1511209426) LYMPH x10^3 (test 3.22 10*3/uL 1.32-3.29 code = 731-0) MONO x10^3 (test 0.60 10*3/uL 0.33-0.92 code = 742-7) EOS x10^3 (test 0.36 10*3/uL 0.03-0.39 code = 711-2) BASO x10^3 (test 0.04 10*3/uL 0.01-0.07 code = 704-7) [facility] [id number] 06:24:00 Test Item Value Reference Range Interpretation Comments POCT PREG (test code = 1605) Negative On board controls acceptable with Positive C Line (test code = 3574) POCT PREG LOT # (test code = 3575) [id number] POCT PREG TEST DATE (test 09/09/2023 code = 3576) Lab Interpretation (test code = Normal 40783-5) [facility] [id number] 13:37:00 Test Item Value Reference Range Interpretation Comments BEDSIDE CREATININE (test code = 0.6 mg/dL 0.52-1.04 N CREATBED) - US PELVIC [id number] 02:02:00 FAX: Diana Wick [phone] [place]: St: REG Name: MAGGY DUNHAM [facility] Ida : 1985 Age/S: 33/F [address] Unit #: [id number] Loc: [place] [address] Phys: Diana Diego NP Acct: [id number] Dis Date: Status: REG ER PHONE #: [phone] Exam Date: 01/17/2019 0156 FAX #: [phone] Reason: LOWER ABD PAIN EXAMS: CPT CODE: [id number] US PELVIC COMPLETE 00015 Exam: Pelvic sonogram. Location: H 12 History: [...] The ovaries are well visualized. 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 Acct: [id number] Dis Date: Status: REG ER PHONE #: [phone] Exam Date: 01/17/2019155 FAX #: [phone] Reason: LOWER ABD PAIN EXAMS: CPT CODE: [id number] US PELVIC COMPLETE 13790 (Continued) Orig Print D/T: S: 01/17/2019 (0205) PAGE 2 Signed Report- US TRANSVAGINAL NON [id number] 02:02:00 FAX: Diana Wick [phone] [place]: St: REG Name: MAGGY DUNHAM [facility] : 1985 Age/S: 33/F [address] Unit #: [id number] Loc: [place] [address] Phys: Diana Diego 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 Location: H 12 History: See reason on US PELVIC NON OB COMPLETE Technique: A real-time transabdominal pelvic sonogram was performed. A transvaginal exam was performed to better evaluate the pelvic anatomy. Grayscale, color flow and spectral analysis of the ovarian vessels was performed. Findings: The uterus is normal in size, shape and echotexture and measures8.5 x 4.0 x 5.1 cm. The endometrial canal is empty. The stripe measures 1.1 cm. The ovaries are wellvisualized. The right ovary measures 2.8 x 2.4 [...] CC: Diana Diego NP Technologist: Stephani Baron [facility] RVT; S#:[id number] Trnscrd Date/Time/By: 01/17/2019 (0202) : By: Isha PAGE 1 Signed Report FAX: Diana Wick [phone] [place]: St: REG Name: MAGGY DUNHAM [facility] : 1985 Age/S: 33/F [address] Unit #: [id number] Loc: [place] [address] Phys: Diana Diego NP Acct: [id number] Dis Date: Status: REG ER PHONE #: [phone] Exam Date: 01/17/2019155 FAX #: [phone] Reason: See reason on US PELVIC NON OB COMPLETE EXAMS: CPT CODE: [id number] [place] [address] (Continued) Orig Print D/T: S: 01/17/2019 (0205) PAGE 2 Signed Report- DUP AB/PEL/SC/[id number] 02:02:00 FAX: Diana Wick [phone] [place]: St: REG Name: MAGYG DUNHAM [facility] : 1985 Age/S: 33/F [address] Unit #: [id number] Loc: [place] [address] Phys: Diana Diego NPAcct: [id number] Dis Date: Status: REG ER PHONE #: [phone] Exam Date: 01/17/2019155 FAX #: Reason: See reason on US PELVIC NON OB COMPLETE EXAMS: CPT CODE: [id number] DUP AB/PEL/SC/LTD 35323 Exam: Pelvic sonogram. Location: H 12 History: See reason on US PELVIC NON OB COMPLETE Technique: A real-time transabdominal pelvic sonogram was performed. A transvaginal exam was performed to better evaluate the pelvic anatomy. Grayscale, color flow and spectral analysis of the ovarian vessels was performed. Findings: The uterus is normal in size, shape and echotexture and measures 8.5 x4.0 x 5.1 cm. The endometrial canal is empty. The stripe measures 1.1 cm. The ovaries are well visualized. The right ovary measures 2.8 x 2.4 x 2.3 cm with a 1.3 cm cyst noted. The left ovary measures 2 .8 x 1.9 x 1.8 cm. There is good blood flow to both ovaries. No adnexal mass is seen. A small amountof free fluid is found the right adnexa. Impression: 1. Right ovarian cyst and surrounding fluid. 2.Otherwise unremarkable exam. at 0202 Reported and signed by: Gustavo New CC: Diana Diego NP Technologist: Stephani Baron RDMS RVT Trnscrd Date/Time/By: 01/17/2019 (0202) : By: Isha PAGE 1 Signed Report FAX: Diana Wick [phone] [place]: St: REG Name: NURY DUNHAMSSNICKOLAS FERNANDEZE [facility] : 1985 Age/S: 33/F [address] Unit #: [id number] Loc: [place] [address] Phys: Diana Diego NP Acct: [id number] Dis Date: Status: REG ER PHONE #: [phone] Exam Date: 01/17/2019 0156 FAX #: [phone] Reason: See reason on US PELVIC NON OB COMPLETE EXAMS: CPT CODE: [id number] DUP AB/PEL/SC/LTD 44772 (Continued) Orig Print D/T: S: 01/17/2019 (0205) PAGE 2 Signed ReportBASI METABOLIC [id number] 00:29:00 Test Item Value Reference Range Interpretation [...] 9.7 mg/dL 8.4-10.2 N CA) LIVER FUNCTION [id number] 00:29:00 Test Item Value Reference Range Interpretation [...] U/L 38-126 N (test code = ALKP) [id number] 00:29:00 Test Item Value Reference Range Interpretation Comments LIPASE (test code = LIP) 44 U/L 23-300 N - CT ABD PELVIS [id number] 00:29:00 FAX: Diana Wick [phone] [place]: St: REG Name: MAGGY DUNHAM [facility] : 1985 Age/S: 33/F [address] Unit: [id number] Loc: [place] [address] Phys: Diana Diego 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 No oral contrast was given Portal venous phase - abdomen and pelvisDelayed images through the abdomen obtained. Reconstructions - coronal and sagittal planes This examwas performed according to our departmental dose-optimization program, which includes automated exposure control, adjustment of the mA and/or kV according to patient size and/or use of iterative reconstruction technique COMPARISON: None FINDINGS: Statements: None. Thoracic: Included images of the lower chest demonstrate no abnormalities. Hepatobiliary: The liver is [...] 4 x 3.1 x 3.1 cm geographic fluiddensity identified in the right adnexa. Gastrointestinal: No bowel obstruction or perienteric inflammation. The appendix is normal. PAGE 1 Signed Report (CONTINUED) FAX: Diana Wick [place]: St: REG -- Name: MAGGY DUNHAM [facility] : 1985 Age/S: 33/F [address] Unit: [id number]: [place] [address] Phys: Diana Diego NP Acct: [id number] Dis Date: Status: REG ER PHONE #: [phone] Exam Date: 01/17/20198 FAX #: [phone] Reason: diffuse abd pain EXAMS: CPT CODE: [id number] CT ABD PELVIS W/CONT 62359 (Continued) Vascular: No evidence of aneurysm or [...] Diego NP Technologist: Soo Ford; ANDREE WEINBERG Trnscrd Dt/Tm: 01/17/2019 (0029) [email or web address] Orig Print D /T: S: 01/17/2019 (0032 PAGE 2 Signed ReportHCG [id number] 00:23:00 Test Item Value Reference Range Interpretation [...] etested after 48 hours toconfirm . URINALYSIS [id number] 00:22:00 Test Item Value Reference Range Interpretation [...] /HPF 0-5 (RARE) = SQU) CBC W/AUTO [id number] 00:19:00 Test Item Value Reference Range Interpretation [...] = BA#) 0.03 x10 3/uL 0.0-0.1 N Notes Date/Time Note Provider Source 2019-01-16 23:38:00-00:00 [facility] ([facility]) EMERGENCY PROVIDER REPORT REPORT#:[id number] REPORT STATUS: Signed DATE:01/16/19 TIME: 2337 PATIENT: MAGGY DUNHAM UNIT #: [id number] ROOM/BED: AGE: 33 SEX: F PCP PHYS: No Primary or Family Ph ysician SERVICE AUTHOR: Diana Diego INSTRUMENTATION TECHNICIAN * ALL edits or amendments must be made on the [employer]/computer document * HPI-General Illness Free Text HPI Notes Free Text HPI Notes 33 y/o F hx of ulcerative colitis presents to e ED for rectal bleeding that began today. Pt states she has been having a wee k of abd pain and today she passed a stool with bright r ed blood. Associated sx is nausea. Pt lastly reports she no longer has a GI doc anymore. No other com plaints. General Confirmed Patient Yes Patient Type New patient Initial Greet Date/Time 01/16/192336 PCP No PCP Presentation Chief Complaint Rectal bleed Hx Obtained From Patient Sudden in Onset? No Onset Occurred Today Progression since Onset Unchanged, Intermittent Caused by No trauma by history Radiation No: Does not radiate. Severity: Onset Moderate Severity: Current Moderate Associated with Reports: Abdominal pain. Denies: Neck pain, Pain on walking, Vomiting, Weak extremity, Weakness. Exacerbated by Nothing Relieved by Nothing Portions of this section wer e scribed by Bon Holguin on 01/16/19 at 2344 Review of Systems ROS Statements All systems rev neg except as marked. Review of Systems Constitutional Denies: Chills, Fever, Lethargy, Weakness - gene ralized. Eyes Denies: Blurred bilat, Diplo belinda, Discharge bilat, Eye pain bilat, Redness bilat, Swelling bilat. Ears/Nose/Throat Denies: Ear drainage bilat, Ear ringing bilat, Earache bilat, Hearing loss bilat , Nose bleeding, Sinus problem, Sore throat. Respiratory Denies: Cough, non-productiv e, Cough, productive, Dyspnea on exertion, Shortness of breath, Wheezing. Cardiovascular Denies: Chest pain, Dyspnea on exertion, Edema, Syncope. GI Reports: Abdominal pain, Bloody/tarry stool. Den ies: Constipation, Diarrhea, Nausea, Vomiting. Female Denies: Dysuria, Flank pain, Hematuria, , Urinary frequency, Urinary urgency, Urination decreased, Urination increase d, Vaginal bleeding - abnl, Vaginal discharge. Musculoskeletal Denies: Back pain, Extremity pain, Extremity swe lling, Joint pain, Joint swelling, Lumbar pain, Myalgia, Neck pain, Thora cic pain. Endocrine Denies: Cold intolerance, Heat intolerance, Poly dipsia, Polyphagia, Polyuria, Weight gain, Weight loss. Skin Denies: Abrasion, Diaphoresis, Erythema, Itching , Laceration, Rash, Swelling. Allergy/Immun Denies: Allergic reaction, Itching, Rhinorrhea, Sneezing. Neurologic Denies: Abnormal movement, Bladder dysfu nction, Bowel dysfunction, Change LOC, Dizziness, Focal weakness, Generalized weakness, Seizure. Psychiatric Denies: Agitation, Anxiety, Stress. Portions of this section radha hudson scribed by Bon Holguin on 01/16/19 at 2338 Past Medical History - Adult Stated Complaint BLEEDING Allergies Uncoded Allergies: CODEINE (VOMIT 11/21/08) Review of Nursing Notes Rev avail, and agree Pt reports no significant: P ast surgical history, Family history, Social history Additional Medical History UC Alcohol Use Denies EtOH use Drug Use Denies recreational drugs Ambulatory Status Independent Portions of this section radha e scribed by Bon Holguin on 01/16/19 at 2344 Physical Exam Vital Signs Vital Signs First Documented: Result Date Time Pulse Ox 98 01/16 2343 B/P 115/71 01/16 2343 B/P Mean 85 01/16 234 O2 Delivery Room air 01/16 2343 Temp 36.8 01/16 234 Pulse 81 01/16 234 Resp 16 01/16 2343 Last Documented: Result Date Time Pulse Ox 99 01/178 B/P 109/73 01/17 0228 B/P Mean 85 / 0228 O2 Delivery Room air 01/178 Pulse 61 /8 Resp 16 01/18 228 Temp 36.8 01/16 234 Review of Vital Signs Reviewed Basic Physical Exam Basic PE GEN: Well appearing /NAD, HEAD: Atraumatic/NC, EYES: PERRL, conj clear, ENT: Membranes moist, NECK: Supple, RESP: No res p distress, CV: Reg rate rhythm, ABD: Soft/non-tender , EXT: No gross abnormality, SKIN: No rashes, warm/ dry, NEURO: alert oriented, NEURO: gross movemen t NL, PSYCH: NL thought content Physical Exam General/Const General/Const Awake, Alert, No acute di stress, Well appearing, Well developed , Well hydrated, Well nourished, Cooperative, No t toxic appearing MS Head Head Atraumatic, Normocephalic Eyes Eyes Atraumatic, PERRL, EOMI, No nystagmus, No periorbital redness, No periorbital swelling, No photophobia Ears/Nose/Throat Ears/Nose/Throat Atraumatic, Airway patent, Muc ous membranes moist, Pharynx NL MS Neck Neck Atraumatic, Supple, No meningismus, Full r rahat of motion, No swelling, Non-tender, No masses Resp/Chest Respiratory/Chest Atraumatic, Breath sounds NL, Breath sounds = bilat, No respiratory distress, No rales, No rhonchi, No w heezing Cardiovascular Cardiovascular Heart rate NL, Regular r hythm, Heart sounds NL, Cap refill not delayed, Peripheral circulation NL Abdomen/GI Abdomen/GI Atraumatic, Soft, BS normoactive, No distention Tenderness/Guarding/Rebound Tender diffuse. MS Back Back Atraumatic, Inspection NL, Painless range of motion, Non-tender, No midline vertebral tend, No paraspinal tenderness , No muscle spasm, No CVA tenderness MS Upper Extrem Upper Extremity/MS Atraumatic, Inspection NL, N o swelling, Non-tender, No erythema, No deformity, Neur ologic intact, Vascular intact, No clubbing/cyanosis MS Wrist/Hand Wrist/Hand Atraumatic, Inspection NL, Full rang e of motion, No swelling MS Lower Extrem Lower Ext/Pelvis/MS Atraumatic, Inspection NL, No swelling, Non-tender, No erythema, No deformity, Neurologic intact, Vascu lar intact, No edema MS Ankle/Foot Ankle/Foot Atraumatic, Inspection NL, Full rang e of motion, No swelling Skin Skin Atraumatic, Color NL, No rash, War m, Dry, Intact, Turgor NL, No swelling Genitourinary General Exam deferred Rectum Rectum/Perineum Patient refused exam Neurologic Neurologic Oriented X3, Speech NL, No motor def icits, No sensory deficits, Cerebellar NL, Memory NL, Gait NL Psychiatric Psychiatric Affect NL, Mood NL, Not suicidal, N ot homicidal, No hallucinations, Cognitive function NL, J udgment/insight NL, Thought content NL Portions of this section radha hudson scribed by Bon Holguin on 01/16/19 at 2344 Interpretation Diagnostics Lab Results Interpretation Results Laboratory Tests 01/16/19 2353: [Embedded Image Not Available] Laboratory Tests: 01/17 01/16 0011 2353 Chemistry Sodium (137 - 145 mmol/L) 139 Potassium (3.4 - 5.0 mmol/L) 3.7 Chloride (98 - 107 mmol/L) 100 Carbon Dioxide (22 - 30 mmol/L) 25 BUN (7 - 17 mg/dL) 9 Creatinine (0.5 - 1.0 mg/dL) 0.6 Glomerular Filtr Rate (>60) 121 Glucose (74 - 106 mg/dL) 118 H Calcium (8.4 - 10.2 mg/dL) 9.7 Total Bilirubin (0.2 - 1.3 mg/dL) 0.3 Conjugated Bilirubin (0 - 0.3 mg/dL) 0 Unconjugated Bilirubin (0 - 1.1 mg/dL) 0.1 AST (15 - 46 U/L) 17 ALT (13 - 69 U/L) 23 Total Alk Phosphatase (38 - 126 U/L) 54 Total Protein (6.3 - 8.2 g/dL) 8.0 Albumin (3.5 - 5.0 g/dL) 4.8 Lipase (23 - 300 U/L) 44 Beta HCG, Quant (0 - 4.9 IU/L) <5.0 Hematology WBC (5.0 - 12.0 x10 3/uL) 14.1 H RBC (4.20 - 5.40 x10 6/uL) 4.90 Hgb (12.0 - 16.0 g/dL) 14.8 Hct (36.0 - 46.0 %) 43.7 MCV (81 - 99 fL) 89 MCH (27 - 31 pg) 30.2 MCHC (33 - 37 g/dL) 33.9 RDW (11.5 - 15.5 %) 12.3 Plt Count (130 - 400 x10 3/uL) 290 MPV (9.4 - 16.4 fL) 10.4 Neut % (Auto) (43 - 65 %) 76.9 H Lymph % (Auto) (20.5 - 45.5 %) 15.7 L [place] % (Auto) (5.5 - 11.7 %) 6.7 Eos % (Auto) (0.9 - 2.9 %) 0.1 L Baso % (Auto) (0.2 - 1.0 %) 0.2 Neut # (Auto) (2.2 - 4.8 x10 3/uL) 10.88 H Lymph # (Auto) (1.3 - 2.9 x10 3/uL) 2.22 [place] # (Auto) (0.3 - 0.8 x10 3/uL) 0.94 H Eos # (Auto) (0.0 - 0.2 x10 3/uL) 0.01 Baso # (Auto) (0.0 - 0.1 x10 3/uL) 0.03 Immature Gran % (0.0 - 2.0 %) 0.4 Nucleated RBC % (0 - 1.0 %) 0.0 Urines Urine Color (Yellow) Straw Urine Appearance (Clear) Slightly-Cloudy Urine pH (5.0 - 8.0) 7.0 Ur Specific Maxie (<1.030) 1.004 Urine Protein (Negative mg/dL) NEGATIVE Urine Glucose (UA) (Negative) Negative Urine Ketones (Negative mg/dL) Negative Urine Blood (Negative) 1+ H Urine Nitrite (Negative) Negative Urine Bilirubin (Negative) Negative Urine Urobilinogen (Negative mg/dL) Negative Ur Leukocyte Esterase (Negative) TRACE H Urine RBC (<4 - 5 /HPF) 0-3 Urine WBC (<4 - 5 /HPF) 0-3 Ur Squamous Epith Cells (0 - 5 (RARE) /HPF) 0-5 (RARE) Urine Bacteria (None - Rare /HPF) Rare Recent Impressions: CAT SCAN - CT ABD PELVIS W/CONT 01/17 0014 Report Impression - Status: SIGNED Entered: 01/17/2019 0032 IMPRESSION: 1.6 cm right ovarian cystlike lesion. 4 x 3.1 x 3.1 cm geographic fluid density in the right adnexa likely a peritoneal inclusion cyst. Normal appendix. Impression By: Tramaine Brennan MD ULTRASOUND - US TRANSVAGINAL NON OB 01/17 115 Report Impression - Status: SIGNED Entered: 01/17/2019204 Impression: 1. Right ovarian cyst and surrounding fluid. 2. Otherwise unremarkable exam. Impression By: Gustavo Conte ULTRASOUND - DUP AB/PEL/SC/LTD 01/17 115 Report Impression - Status: SIGNED Entered: 01/17/2019204 Impression: 1. Right ovarian cyst and surrounding fluid. 2. Otherwise unremarkable exam. Impression By: Gustavo Conte ULTRASOUND - US PELVIC COMPLETE 01/17 115 Report Impression - Status: SIGNED Entered: 01/17/2019204 Impression: 1. Right ovarian cyst and surrounding fluid. 2. Otherwise unremarkable exam. Impression By: Gustavo Conte Lab Imaging Statement Laboratory radiographic studies reviewed and con sidered in the medical decision-making. Point of Care Testing Pulse Oximetry Pulse Ox % 99 On: Room air Interpretation Interpreted by me, Pulse oximet ry normal Time 0259 Re-Evaluation MDM Free Text MDM Notes Free Text MDM Notes DISCUSSED FINDINGS WITH PT AND DISCUSSED ADMISSI ON; PT REQUESTING TO BE DISCHARGED HOME AND WILL F/U Re-Evaluation/Progress #1 Time of Re-Eval 0254 Re-Eval Status Resolved ED Course Medication(s) Ordered Medication(s) Ordered: Antihistamine Drugs Sig/Gabby Start time Last Medication Dose Route Stop Time Status Admin Promethazine HCl 25 MG X1ED STA 01/17 0059 DCD 01/17 Sodium Chloride 10 ML IV 01/17 1158 0112 Gastrointestinal Drugs Sig/Gabby Start time Last Medication Dose Route Stop Time Status Admin Famotidine 20 MG X1ED STA 01/16 2344 DCD 01/16 Sodium Chloride 10 ML IV 01/17 1143 2357 Patient Discharge Departure Vital Signs/Condition Vital Signs First Documented: Result Date Time Pulse Ox 98 01/16 2343 B/P 115/71 01/16 2343 B/P Mean 85 08 2343 O2 Delivery Room air 01/16 2343 Temp 36.8 01/16 2343 Pulse 81 01/16 2343 Resp 16 01/16 2343 Last Documented: Result Date Time Pulse Ox 99 01/17 0228 B/P 109/73 01/17 0228 B/P Mean 85 01/18 228 O2 Delivery Room air 01/18 228 Pulse 61 01/18 228 Resp 16 01/18 228 Temp 36.8 01/163 All vital signs available at the time of this en try have been reviewed. Condition Stable Clinical Impression Clinical Impression Primary Impression: Ovarian cyst Secondary Impressions: Abdominal pain Disposition Decision Discharge )( Discharged to Home Yes )( Time 0259 )( Date 01/17/19 Discharge/Care Plan Counseled Regarding Diagnosi s, Lab results, Imaging studies, Prescriptions, Need for follow-up, When to return to ED Prescriptions Reviewed Risks, Benefits, Alternat luc treatment Discharge Note I have spoken with the patie nt and/or caregivers. I have explained the patient's condition, diagnoses and oj atment plan based on the information available to me at this time. I have answered the patient's and/ or caregiver's questions and addressed any concerns. The patient and/or careg king have as good an understanding of the patient 's diagnosis, condition and treatment plan as can be expected at this point. The vital signs have bee n stable. The patient's condition is stable and appr opriate for discharge from the emergency department. The patient will pursue further outpatient evalu ation with the primary care physician or other designated or consulting phys ician as outlined in the discharge instructions. The patient and/or caregivers are agreeable to this plan of care and follow-up instructions have been exp lained in detail. The patient and/or caregivers have received these instructio ns in written format and have expressed an understanding of the discharge inst ructions. The patient and/or caregivers are aware that any significant change in condition or worsening of symptoms should prompt an immediate return to [facility] or the closest emergency department or a call to 911. Supervising Physician Note Scribe Statement Bon Holguin, 01/16/192338, scribing for and in the presence of [Brandie] . Signed By: Bon Holguin, 01/16/192338 Provider Scribed Statement I personally performed the s ervices described in this documentation and reviewed the documentation that was dictated to the scrib e(s) in my presence, and it accurately records my words and actions. Diana Diego, 01/18/19 Portions of this section wer e scribed by Bon Holguin on 01/16/19 at 2338 at 0135 RPT #:[id number] END OF REPORT 2019-01-16 23:38:00-00:00 [facility] ([facility]) EMERGENCY PROVIDER REPORT REPORT#:[id number] REPORT STATUS: Signed DATE:01/16/19 TIME: 2337 PATIENT: MAGGY DUNHAM UNIT #: [id number] ROOM/BED: AGE: 33 SEX: F PCP PHYS: No Primary or Family P hysician SERVICE AUTHOR: Diana Diego NP * ALL edits or amendments must be made on the [employer]/computer document * Diana Diego 01/16/19 2338: HPI-General Illness Free Text HPI Notes Free Text HPI Notes 33 y/o F hx of ulcerative colitis presents to [facility] ED for rectal bleeding that began today. Pt states she has been having a wee k of abd pain and today she passed a stool with bright r ed blood. Associated sx is nausea. Pt lastly reports she no longer has a GI doc anymore. No other com plaints. General Confirmed Patient Yes Patient Type New patient PCP No PCP Presentation Chief Complaint Rectal bleed Hx Obtained From Patient Sudden in Onset? No Onset Occurred Today Progression since Onset Unchanged, Intermittent Caused by No trauma by history Radiation No: Does not radiate. Severity: Onset Moderate Severity: Current Moderate Associated with Reports: Abdominal pain. Denies: Neck pain, Pain on walking, Vomiting, Weak extremity, Weakness. Exacerbated by Nothing Relieved by Nothing Portions of this section radha e scribed by Bon Holguin on 01/16/19 at 2344 Review of Systems ROS Statements All systems rev neg except as marked. Review of Systems Constitutional Denies: Chills, Fever, Lethargy, Weakness - gene ralized. Eyes Denies: Blurred bilat, Diplo belinda, Discharge bilat, Eye pain bilat, Redness bilat, Swelling bilat. Ears/Nose/Throat Denies: Ear drainage bilat, Ear ringing bilat, Earache bilat, Hearing loss bilat , Nose bleeding, Sinus problem, Sore throat. Respiratory Denies: Cough, non-productiv e, Cough, productive, Dyspnea on exertion, Shortness of breath, Wheezing. Cardiovascular Denies: Chest pain, Dyspnea on exertion, Edema, Syncope. GI Reports: Abdominal pain, Bloody/tarry stool. Den ies: Constipation, Diarrhea, Nausea, Vomiting. Female Denies: Dysuria, Flank pain, Hematuria, , Urinary frequency, Urinary urgency, Urination decreased, Urination increase d, Vaginal bleeding - abnl, Vaginal discharge. Musculoskeletal Denies: Back pain, Extremity pain, Extremity swe lling, Joint pain, Joint swelling, Lumbar pain, Myalgia, Neck pain, Thora cic pain. Endocrine Denies: Cold intolerance, Heat intolerance, Poly dipsia, Polyphagia, Polyuria, Weight gain, Weight loss. Skin Denies: Abrasion, Diaphoresis, Erythema, Itching , Laceration, Rash, Swelling. Allergy/Immun Denies: Allergic reaction, Itching, Rhinorrhea, Sneezing. Neurologic Denies: Abnormal movement, Bladder dysfu nction, Bowel dysfunction, Change LOC, Dizziness, Focal weakness, Generalized weakness, Seizure. Psychiatric Denies: Agitation, Anxiety, Stress. Portions of this section wer e scribed by Bon Holguin on 01/16/19 at 2338 Past Medical History - Adult Stated Complaint BLEEDING Allergies Uncoded Allergies: CODEINE (VOMIT 11/21/08) Review of Nursing Notes Rev avail, and agree Pt reports no significant: P ast surgical history, Family history, Social history Additional Medical History UC Alcohol Use Denies EtOH use Drug Use Denies recreational drugs Ambulatory Status Independent Portions of this section wer e scribed by Bon Holguin on 01/16/19 at 2344 Physical Exam Vital Signs Vital Signs First Documented: Result Date Time Pulse Ox 98 01/16 2343 B/P 115/71 01/16 234 B/P Mean 85 01/16 234 O2 Delivery Room air 01/16 2343 Temp 98.2 01/16 2343 Pulse 81 01/16 2343 Resp 16 01/16 2343 Last Documented: Result Date Time Pulse Ox 99 01/18 228 B/P 109/73 01/18 228 B/P Mean 85 01/17 0228 O2 Delivery Room air 01/18 228 Pulse 61 01/18 228 Resp 16 01/18 228 Temp 98.2 01/16 2343 Review of Vital Signs Reviewed Basic Physical Exam Basic PE GEN: Well appearing /NAD, HEAD: Atraumatic/NC, EYES: PERRL, conj clear, ENT: Membranes moist, NECK: Supple, RESP: No res p distress, CV: Reg rate rhythm, ABD: Soft/non-tender , EXT: No gross abnormality, SKIN: No rashes, warm/ dry, NEURO: alert oriented, NEURO: gross movemen t NL, PSYCH: NL thought content Physical Exam General/Const General/Const Awake, Alert, No acute di stress, Well appearing, Well developed , Well hydrated, Well nourished, Cooperative, No t toxic appearing MS Head Head Atraumatic, Normocephalic Eyes Eyes Atraumatic, PERRL, EOMI, No nystagmus, No periorbital redness, No periorbital swelling, No photophobia Ears/Nose/Throat Ears/Nose/Throat Atraumatic, Airway patent, Muc ous membranes moist, Pharynx NL MS Neck Neck Atraumatic, Supple, No meningismus, Full r rahat of motion, No swelling, Non-tender, No masses Resp/Chest Respiratory/Chest Atraumatic, Breath sounds NL, Breath sounds = bilat, No respiratory distress, No rales, No rhonchi, No w heezing Cardiovascular Cardiovascular Heart rate NL, Regular r hythm, Heart sounds NL, Cap refill not delayed, Peripheral circulation NL Abdomen/GI Abdomen/GI Atraumatic, Soft, BS normoactive, No distention Tenderness/Guarding/Rebound Tender diffuse. MS Back Back Atraumatic, Inspection NL, Painless range of motion, Non-tender, No midline vertebral tend, No paraspinal tenderness , No muscle spasm, No CVA tenderness MS Upper Extrem Upper Extremity/MS Atraumatic, Inspection NL, N o swelling, Non-tender, No erythema, No deformity, Neur ologic intact, Vascular intact, No clubbing/cyanosis MS Wrist/Hand Wrist/Hand Atraumatic, Inspection NL, Full rang e of motion, No swelling MS Lower Extrem Lower Ext/Pelvis/MS Atraumatic, Inspection NL, No swelling, Non-tender, No erythema, No deformity, Neurologic intact, Vascu lar intact, No edema MS Ankle/Foot Ankle/Foot Atraumatic, Inspection NL, Full rang e of motion, No swelling Skin Skin Atraumatic, Color NL, No rash, War m, Dry, Intact, Turgor NL, No swelling Genitourinary General Exam deferred Rectum Rectum/Perineum Patient refused exam Neurologic Neurologic Oriented X3, Speech NL, No motor def icits, No sensory deficits, Cerebellar NL, Memory NL, Gait NL Psychiatric Psychiatric Affect NL, Mood NL, Not suicidal, N ot homicidal, No hallucinations, Cognitive function NL, J udgment/insight NL, Thought content NL Portions of this section wer e scribed by Bon Holguin on 01/16/19 at 2344 Interpretation Diagnostics Lab Results Interpretation Results Laboratory Tests 01/16/19 2353: [Embedded Image Not Available] Laboratory Tests: 01/17 01/16 0011 2353 Chemistry Sodium (137 - 145 mmol/L) 139 Potassium (3.4 - 5.0 mmol/L) 3.7 Chloride (98 - 107 mmol/L) 100 Carbon Dioxide (22 - 30 mmol/L) 25 BUN (7 - 17 mg/dL) 9 Creatinine (0.5 - 1.0 mg/dL) 0.6 Glomerular Filtr Rate (>60) 121 Glucose (74 - 106 mg/dL) 118 H Calcium (8.4 - 10.2 mg/dL) 9.7 Total Bilirubin (0.2 - 1.3 mg/dL) 0.3 Conjugated Bilirubin (0 - 0.3 mg/dL) 0 Unconjugated Bilirubin (0 - 1.1 mg/dL) 0.1 AST (15 - 46 U/L) 17 ALT (13 - 69 U/L) 23 Total Alk Phosphatase (38 - 126 U/L) 54 Total Protein (6.3 - 8.2 g/dL) 8.0 Albumin (3.5 - 5.0 g/dL) 4.8 Lipase (23 - 300 U/L) 44 Beta HCG, Quant (0 - 4.9 IU/L) <5.0 Hematology WBC (5.0 - 12.0 x10 3/uL) 14.1 H RBC (4.20 - 5.40 x10 6/uL) 4.90 Hgb (12.0 - 16.0 g/dL) 14.8 Hct (36.0 - 46.0 %) 43.7 MCV (81 - 99 fL) 89 MCH (27 - 31 pg) 30.2 MCHC (33 - 37 g/dL) 33.9 RDW (11.5 - 15.5 %) 12.3 Plt Count (130 - 400 x10 3/uL) 290 MPV (9.4 - 16.4 fL) 10.4 Neut % (Auto) (43 - 65 %) 76.9 H Lymph % (Auto) (20.5 - 45.5 %) 15.7 L [place] % (Auto) (5.5 - 11.7 %) 6.7 Eos % (Auto) (0.9 - 2.9 %) 0.1 L Baso % (Auto) (0.2 - 1.0 %) 0.2 Neut # (Auto) (2.2 - 4.8 x10 3/uL) 10.88 H Lymph # (Auto) (1.3 - 2.9 x10 3/uL) 2.22 [place] # (Auto) (0.3 - 0.8 x10 3/uL) 0.94 H Eos # (Auto) (0.0 - 0.2 x10 3/uL) 0.01 Baso # (Auto) (0.0 - 0.1 x10 3/uL) 0.03 Immature Gran % (0.0 - 2.0 %) 0.4 Nucleated RBC % (0 - 1.0 %) 0.0 Urines Urine Color (Yellow) Straw Urine Appearance (Clear) Slightly-Cloudy Urine pH (5.0 - 8.0) 7.0 Ur Specific Maxie (<1.030) 1.004 Urine Protein (Negative mg/dL) NEGATIVE Urine Glucose (UA) (Negative) Negative Urine Ketones (Negative mg/dL) Negative Urine Blood (Negative) 1+ H Urine Nitrite (Negative) Negative Urine Bilirubin (Negative) Negative Urine Urobilinogen (Negative mg/dL) Negative Ur Leukocyte Esterase (Negative) TRACE H Urine RBC (<4 - 5 /HPF) 0-3 Urine WBC (<4 - 5 /HPF) 0-3 Ur Squamous Epith Cells (0 - 5 (RARE) /HPF) 0-5 (RARE) Urine Bacteria (None - Rare /HPF) Rare Recent Impressions: CAT SCAN - CT ABD PELVIS W/CONT 01/17 0014 Report Impression - Status: SIGNED Entered: 01/17/2019 0032 IMPRESSION: 1.6 cm right ovarian cystlike lesion. 4 x 3.1 x 3.1 cm geographic fluid density in the right adnexa likely a peritoneal inclusion cyst. Normal appendix. Impression By: Gilberto Block MD, Tramaine ULTRASOUND - US TRANSVAGINAL NON OB 01/17 115 Report Impression - Status: SIGNED Entered: 01/17/2019204 Impression: 1. Right ovarian cyst and surrounding fluid. 2. Otherwise unremarkable exam. Impression By: Gustavo Conte ULTRASOUND - DUP AB/PEL/SC/LTD 01/17 115 Report Impression - Status: SIGNED Entered: 01/17/2019204 Impression: 1. Right ovarian cyst and surrounding fluid. 2. Otherwise unremarkable exam. Impression By: Gustavo Conte ULTRASOUND - US PELVIC COMPLETE 01/17 115 Report Impression - Status: SIGNED Entered: 01/17/2019204 Impression: 1. Right ovarian cyst and surrounding fluid. 2. Otherwise unremarkable exam. Impression By: Gustavo Conte Lab Imaging Statement Laboratory radiographic studies reviewed and con sidered in the medical decision-making. Point of Care Testing Pulse Oximetry Pulse Ox % 99 On: Room air Interpretation Interpreted by me, Pulse oximetr y normal Time 0259 Re-Evaluation MDM Free Text MDM Notes Free Text MDM Notes DISCUSSED FINDINGS WITH PT AND DISCUSSED ADMISSI ON; PT REQUESTING TO BE DISCHARGED HOME AND WILL F/U Re-Evaluation/Progress #1 Time of Re-Eval 0254 Re-Eval Status Resolved ED Course Medication(s) Ordered Medication(s) Ordered: Antihistamine Drugs Sig/Gabby Start time Last Medication Dose Route Stop Time Status Admin Promethazine HCl 25 MG X1ED STA 01/17 0059 DCD 01/17 Sodium Chloride 10 ML IV 01/17 1158 0112 Gastrointestinal Drugs Sig/Gabby Start time Last Medication Dose Route Stop Time Status Admin Famotidine 20 MG X1ED STA 01/16 2344 DCD 01/16 Sodium Chloride 10 ML IV 01/17 1143 2357 Patient Discharge Departure Vital Signs/Condition Vital Signs First Documented: Result Date Time Pulse Ox 98 01/16 2343 B/P 115/71 01/16 2343 B/P Mean 85 01/16 2343 O2 Delivery Room air 01/16 2343 Temp 98.2 01/16 2343 Pulse 81 01/16 2343 Resp 01/16 Last Documented: Result Date Time Pulse Ox 99 01/18 228 B/P 109/73 01/18 228 B/P Mean 85 01/18 228 O2 Delivery Room air 01/18 228 Pulse 61 01/178 Resp 16 01/18 228 Temp 98.2 01/16 2343 All vital signs available at the time of this en try have been reviewed. Condition Stable Clinical Impression Clinical Impression Primary Impression: Ovarian cyst Secondary Impressions: Abdominal pain Disposition Decision Discharge )( Discharged to Home Yes )( Time 258 )( Date 01/17/19 Discharge/Care Plan Counseled Regarding Diagnosi s, Lab results, Imaging studies, Prescriptions, Need for follow-up, When to return to ED Prescriptions Reviewed Risks, Benefits, Alternat luc treatment Discharge Note I have spoken with the patie nt and/or caregivers. I have explained the patient's condition, diagnoses and oj atment plan based on the information available to me at this time. I have answered the patient's and/ or caregiver's questions and addressed any concerns. The patient and/or careg king have as good an understanding of the patient 's diagnosis, condition and treatment plan as can be expected at this point. The vital signs have bee n stable. The patient's condition is stable and appr opriate for discharge from the emergency department. The patient will pursue further outpatient evalu ation with the primary care physician or other designated or consulting phys ician as outlined in the discharge instructions. The patient and/or caregivers are agreeable to this plan of care and follow-up instructions have been exp lained in detail. The patient and/or caregivers have received these instructio ns in written format and have expressed an understanding of the discharge inst ructions. The patient and/or caregivers are aware that any significant change in condition or worsening of symptoms should prompt an immediate return to [facility] or the closest emergency department or a call to 911. Supervising Physician Note Scribe Statement Bon Holguin, 01/16/192338, scribing for and in the presence of [Brandie] . Signed By: Bon Holguin, 01/16/19 2339 Provider Scribed Statement I personally performed the s ervices described in this documentation and reviewed the documentation that was dictated to the scrib e(s) in my presence, and it accurately records my words and actions. Diana Diego, 01/18/19 Portions of this section wer e scribed by Bon Holguin on 01/16/19 at 2338 Vitaliy Servin 01/20/19 1103: HPI-General Illness General Initial Greet Date/Time 01/16/19 2337 Patient Discharge Departure Supervising Physician Note MidLv Saw Pt Alone I have reviewed the PA/INSTRUMENTATION TECHNICIAN's note and plan of car e. I was available for consultation as needed at al l times during the patient's visit in the emergency department. I agree with the clinical impression , plan and disposition. at 0135 at 1101 [facility] #:[id number] END OF REPORT"
[2022-12-27] MEDS ORDERED: ALPRAZOLAM 1 MG TABLET ONE (14:00)
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
[2022-12-27 15:44] VITALS: TEMP 97.1; O2SAT 100
[2022-12-27 15:45] VITALS: BP 118/66
== END 2022-12-27 15:36 | disposition home or self-care (01) ==
LOC: ER 13:15
DX: S00.83XA Contusion of other part of head, initial encounter (principal); F41.9 Anxiety disorder, unspecified
CPT/HCPCS: 70450; 70486; 76377; 99283